=== PATIENT | female | born 1985 | race Caucasian/White ===

== ENCOUNTER 2016-11-16 08:51 | Emergency (ER) | payer OTHER ==
[2016-11-16 08:56] VITALS: TEMP 98.7
[2016-11-16] MEDS ORDERED: KETOROLAC 60 MG/2 ML VIAL IM STA (09:04)
--- NOTE | 2016-11-16 09:04 | ED ---
Extremity Problem HPI - General Chief complaint: Extremity Problem,Nontraumatic Stated complaint: pelvic and leg pain Time Seen by Provider: 11/16/16 08:57 Source: patient, RN notes reviewed, old records reviewed Mode of arrival: ambulatory Limitations: no limitations - History of Present Illness Initial comments: This is a 31-year-old female presenting to the emergency Department chief complaint of right inner thigh pain for the past day. Patient reports she woke up this morning and felt like a dull cramping pain in the right inner thigh. Patient reports that she went to work this morning and thought it would go away. Patient reports any time she bends over she feels like a sudden glynn of blood and that her "veins will explode". Denies any history of blood clots. Denies any hormone use. She is an occasional smoker. Patient states that she has no specific lower calf pain or tenderness. Patient states that she did not do any excessive movements or walking yesterday that would be abnormal. - Related Data Previous Rx's Medication Instructions Recorded Rivaroxaban [Xarelto] 15 mg PO BID 21 Days 11/16/16 Allergies Allergy/AdvReac Type Severity Reaction Status Date / Time No Known Allergies Allergy Verified 11/16/16 09:09 Review of Systems ROS Statement: Those systems with pertinent positive or pertinent negative responses have been documented in the HPI. ROS Other: All systems not noted in ROS Statement are negative. Past Medical History Past Medical History: GERD/Reflux, Thyroid Disorder History of Any Multi-Drug Resistant Organisms: None Reported Past Surgical History: Section, Cholecystectomy, Tubal Ligation Additional Past Surgical History / Comment(s): sciatica, herniated lumbar disc Past Anesthesia/Blood Transfusion Reactions: No Reported Reaction Past Psychological History: No Psychological Hx Reported Smoking Status: Current some day smoker Past Alcohol Use History: Occasional Past Drug Use History: None Reported General Exam - General Exam Comments Initial Comments: This is a 31-year-old female. Patient is morbidly obese. Limitations: no limitations General appearance: alert, in no apparent distress Head exam: Present: atraumatic, normocephalic, normal inspection Eye exam: Present: normal appearance, PERRL, EOMI. Absent: scleral icterus, conjunctival injection, periorbital swelling ENT exam: Present: normal exam, mucous membranes moist Neck exam: Present: normal inspection. Absent: tenderness, meningismus, lymphadenopathy Respiratory exam: Present: normal lung sounds bilaterally. Absent: respiratory distress, wheezes, rales, rhonchi, stridor Cardiovascular Exam: Present: regular rate, normal rhythm, normal heart sounds. Absent: systolic murmur, diastolic murmur, rubs, gallop, clicks GI/Abdominal exam: Present: soft, normal bowel sounds. Absent: distended, tenderness, guarding, rebound, rigid Right Hip exam: Present: normal inspection, full ROM Upper Leg exam: Present: normal inspection (Patient does have evidence of varicosities.), full ROM, tenderness (Tenderness over medial thigh.) Knee exam: Present: normal inspection, full ROM Lower Leg exam: Present: normal inspection, full ROM. Absent: palpable cord, Homans' sign Ankle exam: Present: normal inspection, full ROM Foot/Toe exam: Present: normal inspection, full ROM Neurovascular tendon exam: Present: no vascular compromise Gait: observed and normal Back exam: Present: normal inspection Neurological exam: Present: alert, oriented X3, CN II-XII intact Psychiatric exam: Present: normal affect, normal mood Course Vital Signs 11/16/16 11/16/16 08:51 10:30 Temperature 98.7 F 98.7 F Pulse Rate 72 89 Respiratory 20 16 Rate Blood Pressure 138/77 118/76 O2 Sat by Pulse 96 98 Oximetry Medical Decision Making - Medical Decision Making 30-year-old female chief complaint of right thigh and groin pain. Patient received a Doppler ultrasound. Evidence of a superficial thrombus within the great saphenous vein. There is a connecting portion within the deep venous system. Discussed case with Dr. Roberts. Recommended putting the patient on several toe. Patient given initial dose in emergency department. Patient will be written for the first 21 days. Discussion is follow-up with her primary care provider the next 12-24 hours to ensure the correct anticoagulation medicine for her. Discussed putting warm compresses over the areas will take anti-inflammatory medicine. Patient agrees to treatment plan will comply. - Radiology Data Radiology results: report reviewed Superficial venous terms of the great saphenous vein deep venous system, although no thrombus. With the deep venous the right lower extremity. Disposition Clinical Impression: Embolism from right greater saphenous vein Disposition: HOME SELF-CARE Condition: Good Instructions: Superficial Thrombophlebitis (ED) Additional Instructions: Patient is to follow-up with your primary care provider. Return to the emergency department if any alarming signs or symptoms occur, including severe chest pain or shortness of breath. Prescriptions: Rivaroxaban [Xarelto] 15 mg PO BID 21 Days Referrals: Yasmin Fontaine MD [Primary Care Provider] - 1-2 days Time of Disposition: 10:14
--- NOTE | 2016-11-16 09:44 | US ---
EXAMINATION TYPE: US venous doppler duplex LE RT DATE OF EXAM: 11/16/2016 9:35 AM COMPARISON: NONE CLINICAL HISTORY: Pain. Right inner thigh pain, no h/o dvt, large body habitus SIDE PERFORMED: Right TECHNIQUE: The lower extremity deep venous system is examined utilizing real time linear array sonog charlie with graded compression, doppler sonography and color-flow sonography. VESSELS IMAGED: External Iliac Vein (EIV) Common Femoral Vein Deep Femoral Vein Greater Saphenous Vein * Femoral Vein Popliteal Vein Small Saphenous Vein * Proximal Calf Veins (* superficial vessels) Right Leg: Appears negative for DVT, evidence of superficial thrombus within GSV at thigh level, GSV was not fully compressible with internal echoes and minimal flow seen, dilation of GSV noted even at junction near CFV Grayscale, color doppler, spectral doppler imaging performed of the deep veins of the lower extremiti es. There is normal flow, compressibility, vascular waveforms. IMPRESSION: Superficial venous thrombosis within the great saphenous vein and connects with the deep venous system (common femoral vein) although no thrombosis is seen within the deep venous system of the right lower extremity.
[2016-11-16] MEDS ORDERED: RIVAROXABAN 15 MG TAB PO STA (10:15)
[2016-11-16 10:30] VITALS: BP 118/76; PULSE 89; RESP 16
== END 2016-11-16 10:30 | disposition home or self-care (01) ==
LOC: EC 08:51
DX: I82.811 Embolism and thrombosis of superficial veins of right lower extremity (principal); E66.01 Morbid (severe) obesity due to excess calories; F17.200 Nicotine dependence, unspecified, uncomplicated; Z68.43 Body mass index [BMI] 50.0-59.9, adult
CPT/HCPCS: 99284; 96372; 93971; J1885

== ENCOUNTER 2016-11-17 12:21 | Emergency (ER) | payer OTHER ==
[2016-11-17 12:31] VITALS: TEMP 98.8
[2016-11-17] MEDS ORDERED: SODIUM CHLORIDE 0.9% 1,000 ML IV STA (12:50)
[2016-11-17] MEDS ORDERED: RX INFO: IV CONTRAST WAS GIVEN 1 EACH MISC MISCELLANE PRN (12:51)
--- NOTE | 2016-11-17 12:54 | ED ---
General Adult HPI - General Chief complaint: Extremity Injury, Lower Stated complaint: Sent by PCP recheck Time Seen by Provider: 11/17/16 12:36 Source: patient, RN notes reviewed, old records reviewed Mode of arrival: ambulatory Limitations: no limitations - History of Present Illness Initial comments: 31-year-old female presents emergency department for her second visit with chief complaint of increased right inner thigh pain. Patient was diagnosed yesterday with a superficial thrombus connecting into the deep venous system of her right leg. Patient reports that this morning she did feel some chest discomfort and did feel short of breath however she then related to anxiety. She states that this time she has no chest pain or shortness of breath. Patient went to her primary care provider in her primary care provider sent her here due to increased pain and swelling and that a further evaluation. Patient reports that she could not pickle sorter the prescription for his her alto, but she did receive initial dose yesterday. - Related Data Home Medications Medication Instructions Recorded Confirmed Ibuprofen [Motrin] 600 mg PO Q6HR PRN 11/17/16 11/17/16 Previous Rx's Medication Instructions Recorded Apixaban [Eliquis] 10 mg PO BID #70 tab 11/17/16 Allergies Allergy/AdvReac Type Severity Reaction Status Date / Time No Known Allergies Allergy Verified 11/17/16 13:22 Review of Systems ROS Statement: Those systems with pertinent positive or pertinent negative responses have been documented in the HPI. ROS Other: All systems not noted in ROS Statement are negative. Past Medical History Past Medical History: GERD/Reflux, Thyroid Disorder Additional Past Medical History / Comment(s): sciatica and chronic back pain History of Any Multi-Drug Resistant Organisms: None Reported Past Surgical History: Section, Cholecystectomy, Tubal Ligation Additional Past Surgical History / Comment(s): sciatica, herniated lumbar disc Past Anesthesia/Blood Transfusion Reactions: No Reported Reaction Past Psychological History: No Psychological Hx Reported Smoking Status: Current some day smoker Past Alcohol Use History: Occasional Past Drug Use History: None Reported General Exam - General Exam Comments Initial Comments: 31-year-old female. Patient does not appear to be in any acute distress. Patient does appear to be somewhat anxious, Limitations: no limitations General appearance: alert, in no apparent distress Head exam: Present: atraumatic, normocephalic, normal inspection Eye exam: Present: normal appearance, PERRL, EOMI. Absent: scleral icterus, conjunctival injection, periorbital swelling ENT exam: Present: normal exam, mucous membranes moist Neck exam: Present: normal inspection. Absent: tenderness, meningismus, lymphadenopathy Respiratory exam: Present: normal lung sounds bilaterally. Absent: respiratory distress, wheezes, rales, rhonchi, stridor Cardiovascular Exam: Present: regular rate, normal rhythm, normal heart sounds. Absent: systolic murmur, diastolic murmur, rubs, gallop, clicks GI/Abdominal exam: Present: soft, normal bowel sounds. Absent: distended, tenderness, guarding, rebound, rigid Extremities exam: Present: normal inspection, full ROM, normal capillary refill. Absent: tenderness, pedal edema, joint swelling, calf tenderness Back exam: Present: normal inspection Neurological exam: Present: alert, oriented X3, CN II-XII intact Psychiatric exam: Present: normal affect, normal mood Course Vital Signs 11/17/16 11/17/16 12:27 14:31 Temperature 98.8 F Pulse Rate 77 60 Respiratory 18 18 Rate Blood Pressure 168/81 152/70 O2 Sat by Pulse 99 99 Oximetry Medical Decision Making - Medical Decision Making 31-year-old female sent in by her PCP for further evaluation after being diagnosed with a superficial thrombus yesterday. Patient primary care wanted his CT and further blood work. EKG was reviewed and negative for any acute process. CT angiogram is negative for PE. Patient's troponins are negative. All lab work was reviewed and normal. Discussed case with Dr. Umanzor. Dr. Umanzor discussed with Dr. Matthews. We do have a free trial for Ahlquist for 1 month. Patient will be started on the initial dose of 10 mg twice a day for the first week. Patient will then 25 mg twice a day thereafter. Patient was informed of all of this. Discussed close follow-up with her primary care provider. Return parameters were discussed. - Lab Data Result diagrams: 11/17/16 13:14 11/17/16 13:14 Lab Results 11/17/16 11/17/16 11/17/16 Range/Units 13:14 13:14 13:14 WBC 8.6 (3.8-10.6) k/uL RBC 4.18 (3.80-5.40) m/uL Hgb 13.4 (11.4-16.0) gm/dL Hct 37.1 (34.0-46.0) % MCV 88.8 (80.0-100.0) fL MCH 32.1 (25.0-35.0) pg MCHC 36.2 (31.0-37.0) g/dL RDW 14.0 (11.5-15.5) % Plt Count 304 (150-450) k/uL Neutrophils % 70 % Lymphocytes % 22 % Monocytes % 3 % Eosinophils % 3 % Basophils % 1 % Neutrophils # 6.0 (1.3-7.7) k/uL Lymphocytes # 1.9 (1.0-4.8) k/uL Monocytes # 0.3 (0-1.0) k/uL Eosinophils # 0.2 (0-0.7) k/uL Basophils # 0.1 (0-0.2) k/uL Hyperchromasia Slight PT (9.0-12.0) sec INR (<1.2) APTT (22.0-30.0) sec Sodium 140 (137-145) mmol/L Potassium 4.3 (3.5-5.1) mmol/L Chloride 105 (98-107) mmol/L Carbon Dioxide 26 (22-30) mmol/L Anion Gap 9 mmol/L BUN 14 (7-17) mg/dL Creatinine 0.69 (0.52-1.04) mg/dL Est GFR (MDRD) Af Amer >60 (>60 ml/min/1.73 sqM) Est GFR (MDRD) Non-Af >60 (>60 ml/min/1.73 sqM) Glucose 90 (74-99) mg/dL Calcium 9.0 (8.4-10.2) mg/dL Total Bilirubin 0.5 (0.2-1.3) mg/dL AST 19 (14-36) U/L ALT 36 (9-52) U/L Alkaline Phosphatase 65 (38-126) U/L Total Creatine Kinase 53 (30-135) U/L CK-MB (CK-2) 0.3 (0.0-2.4) ng/mL CK-MB (CK-2) Rel Index 0.6 Troponin I <0.012 (0.000-0.034) ng/mL Total Protein 6.8 (6.3-8.2) g/dL Albumin 3.7 (3.5-5.0) g/dL Urine Color Urine Appearance (Clear) Urine pH (5.0-8.0) Ur Specific [place] (1.001-1.035) Urine Protein (Negative) Urine Glucose (UA) (Negative) Urine Ketones (Negative) Urine Blood (Negative) Urine Nitrite (Negative) Urine Bilirubin (Negative) Urine Urobilinogen (<2.0) mg/dL Ur Leukocyte Esterase (Negative) 11/17/16 11/17/16 Range/Units 13:14 14:30 WBC (3.8-10.6) k/uL RBC (3.80-5.40) m/uL Hgb (11.4-16.0) gm/dL Hct (34.0-46.0) % MCV (80.0-100.0) fL MCH (25.0-35.0) pg MCHC (31.0-37.0) g/dL RDW (11.5-15.5) % Plt Count (150-450) k/uL Neutrophils % % Lymphocytes % % Monocytes % % Eosinophils % % Basophils % % Neutrophils # (1.3-7.7) k/uL Lymphocytes # (1.0-4.8) k/uL Monocytes # (0-1.0) k/uL Eosinophils # (0-0.7) k/uL Basophils # (0-0.2) k/uL Hyperchromasia PT 10.1 (9.0-12.0) sec INR 1.0 (<1.2) APTT 24.2 (22.0-30.0) sec Sodium (137-145) mmol/L Potassium (3.5-5.1) mmol/L Chloride (98-107) mmol/L Carbon Dioxide (22-30) mmol/L Anion Gap mmol/L BUN (7-17) mg/dL Creatinine (0.52-1.04) mg/dL Est GFR (MDRD) Af Amer (>60 ml/min/1.73 sqM) Est GFR (MDRD) Non-Af (>60 ml/min/1.73 sqM) Glucose (74-99) mg/dL Calcium (8.4-10.2) mg/dL Total Bilirubin (0.2-1.3) mg/dL AST (14-36) U/L ALT (9-52) U/L Alkaline Phosphatase (38-126) U/L Total Creatine Kinase (30-135) U/L CK-MB (CK-2) (0.0-2.4) ng/mL CK-MB (CK-2) Rel Index Troponin I (0.000-0.034) ng/mL Total Protein (6.3-8.2) g/dL Albumin (3.5-5.0) g/dL Urine Color Light Yellow Urine Appearance Clear (Clear) Urine pH 5.5 (5.0-8.0) Ur Specific [place] 1.023 (1.001-1.035) Urine Protein Negative (Negative) Urine Glucose (UA) Negative (Negative) Urine Ketones Negative (Negative) Urine Blood Negative (Negative) Urine Nitrite Negative (Negative) Urine Bilirubin Negative (Negative) Urine Urobilinogen <2.0 (<2.0) mg/dL Ur Leukocyte Esterase Negative (Negative) 11/17/16 13:42 EKG shows sinus rhythm. Minimal voltage criteria for LVH. The degree of 65 beats were minute. QRS duration 90 ms. QT QTc is 412/420 ms. No evidence of ST elevation or T-wave inversion. EKG was performed at 1336. - Radiology Data Radiology results: report reviewed Suboptimal study without large saddle central pulmonary embolism. Smaller segmental and subsegmental PE cannot be excluded and the study. No suspicious acute pulmonary processes identified. Disposition Clinical Impression: Superficial thrombosis of right lower extremity Disposition: HOME SELF-CARE Condition: Good Additional Instructions: Patient advised to use the activation cardiac at the [facility] trial valid request. Patient started follow-up with her primary care provider in the next week. Return to the emergency department if any alarming signs or symptoms occur. Take Tylenol as directed. Prescriptions: Apixaban [Eliquis] 10 mg PO BID #70 tab Referrals: Yasmin Fontaine MD [Primary Care Provider] - 1-2 days Time of Disposition: 15:33
[2016-11-17] MEDS ORDERED: KETOROLAC 30 MG/ML 1 ML VIAL IVP STA (13:44)
[2016-11-17 13:46] LABS: ALT 36 U/L (9-52); AST 19 U/L (14-36); Alkaline Phosphatase 65 U/L (38-126); Anion Gap 9 mmol/L; Blood Urea Nitrogen 14 mg/dL (7-17); Carbon Dioxide 26 mmol/L (22-30); Chloride 105 mmol/L (98-107); Glucose 90 mg/dL (74-99); Non-African American GFR(MDRD) >60 (>60 ml/min/1.73 sqM); Potassium 4.3 mmol/L (3.5-5.1); Sodium 140 mmol/L (137-145); Total Bilirubin 0.5 mg/dL (0.2-1.3); Total Protein 6.8 g/dL (6.3-8.2)
[2016-11-17 13:48] LABS: Basophils # (A) 0.1 k/uL (0-0.2); Basophils % (A) 1 %; CH 32.9; CHCM 37.3; Eosinophils # (A) 0.2 k/uL (0-0.7); Eosinophils % (A) 3 %; HCT 37.1 % (34.0-46.0); HDW 3.15; HGB 13.4 gm/dL (11.4-16.0); Hyperchromasia Slight; Luc % (Auto) 1; Lymphocytes # (A) 1.9 k/uL (1.0-4.8); Lymphocytes % (A) 22 %; MCH 32.1 pg (25.0-35.0); MCHC 36.2 g/dL (31.0-37.0); MCV 88.8 fL (80.0-100.0); Mean Platelet Volume 6.8; Monocytes # (A) 0.3 k/uL (0-1.0); Monocytes % (A) 3 %; Neutrophils % (A) 70 %; RBC 4.18 m/uL (3.80-5.40); WBC 8.6 k/uL (3.8-10.6); WBC (Perox) 8.57
[2016-11-17 13:51] LABS: Partial Thromboplastin Time 24.2 sec (22.0-30.0); Prothrombin Time 10.1 sec (9.0-12.0)
[2016-11-17 13:56] LABS: Creatine Kinase 53 U/L (30-135)
[2016-11-17 14:09] LABS: Creatine Kinase MB 0.3 ng/mL (0.0-2.4); Troponin I <0.012 ng/mL (0.000-0.034)
--- NOTE | 2016-11-17 14:35 | CT ---
EXAMINATION TYPE: CT chest angio for PE DATE OF EXAM: 11/17/2016 COMPARISON: NONE HISTORY: Chest pain rule out pulmonary embolism. CT DLP: 1190.2 mGycm. Automated Exposure Control for Dose Reduction was Utilized. CONTRAST: CTA scan of the thorax is performed with IV Contrast, patient injected with 100 mL of Omnipaque 350, pulmonary embolism protocol. MIP Images are created on CT scanner and reviewed. FINDINGS: LUNGS: Low lung volumes are slightly elevated left hemidiaphragm is present. The lungs are grossly cl ear, there is no concerning parenchymal mass or nodule identified. There is no pleural effusion or pneumothorax seen. The tracheobronchial tree is patent. MEDIASTINUM: Exam is suboptimal due to patient's large body habitus. In addition there is patient non cooperation causing poor bolus timing with most prominent contrast in the left subclavian vein and SV C. There is poor heterogeneous bolus without large central saddle pulmonary embolism. Smaller segment al and subsegmental PE cannot be excluded on this exam. There are no greater than 1 cm hilar or media stinal lymph nodes. No cardiomegaly or pericardial effusion is seen. OTHER: Liver is diffusely low dense consistent with fatty infiltration. Cholecystectomy clips are par tially imaged.. IMPRESSION: Suboptimal study without large saddle central pulmonary embolism. Smaller segmental and s ubsegmental PE cannot be excluded on this study. No suspicious acute pulmonary process is noted.
[2016-11-17 14:47] LABS: Appearance,Urine Clear (Clear); Bilirubin,Urine Negative (Negative); Glucose,Urine (UA) Negative (Negative); Ketones,Urine Negative (Negative); Leukocyte Esterase,Urine Negative (Negative); Nitrite,Urine Negative (Negative); PH, Urine 5.5 (5.0-8.0); Protein,Urine Negative (Negative); Specific Gravity,Urine 1.023 (1.001-1.035); UA Billing (MACRO vs. MICRO) CHEM; Urobilinogen,Urine <2.0 mg/dL (<2.0)
[2016-11-17] MEDS ORDERED: APIXABAN 5 MG TAB PO STA (15:26)
[2016-11-17 15:57] VITALS: BP 153/87; PULSE 66; RESP 16
== END 2016-11-17 15:58 | disposition home or self-care (01) ==
LOC: EC 12:21
DX: I82.4Z1 Acute embolism and thrombosis of unspecified deep veins of right distal lower extremity (principal); R07.89 Other chest pain; R06.02 Shortness of breath; F17.200 Nicotine dependence, unspecified, uncomplicated
CPT/HCPCS: 36415; 93005; 80053; 82550; 82553; 84484; 85025; 85610; 85730; 81003; 71275; 99284; 96374; 96361 ×3; Q9967; J1885

== ENCOUNTER 2017-05-23 13:17 | Emergency (ER) | payer OTHER ==
[2017-05-23 13:32] VITALS: RESP 18
--- NOTE | 2017-05-23 13:44 | ED ---
Lower Extremity Injury HPI - General Chief Complaint: Extremity Injury, Lower Stated Complaint: fall/toe pain Time Seen by Provider: 05/23/17 13:29 Source: patient, RN notes reviewed Mode of arrival: ambulatory Limitations: no limitations - History of Present Illness Initial Comments: This is a 32-year-old female who presents to the emergency department with chief complaint of left toe pain. Patient states that approximately 30-45 minutes prior to arrival she missed the last step while coming down a set of stairs. She states that she fell forward and when she got up noticed that she had pain in her third left toe. Patient states that she sat at home for a while and the pain became worse and she noticed swelling. She describes the pain as a stinging sensation and states that it is difficult to walk due to the pain. Denies any other injuries or trauma. Denies fever, chills, chest pain, shortness of breath, abdominal pain, nausea or vomiting, numbness or tingling, headache or vision changes. - Related Data Home Medications Medication Instructions Recorded Confirmed Ibuprofen [Motrin Ib] 800 mg PO TID PRN 05/23/17 05/23/17 Allergies Allergy/AdvReac Type Severity Reaction Status Date / Time No Known Allergies Allergy Verified 05/23/17 13:39 Review of Systems ROS Statement: Those systems with pertinent positive or pertinent negative responses have been documented in the HPI. ROS Other: All systems not noted in ROS Statement are negative. Past Medical History Past Medical History: Deep Vein Thrombosis (DVT), GERD/Reflux, Thyroid Disorder Additional Past Medical History / Comment(s): sciatica and chronic back pain History of Any Multi-Drug Resistant Organisms: None Reported Past Surgical History: Section, Cholecystectomy, Tubal Ligation Additional Past Surgical History / Comment(s): sciatica, herniated lumbar disc Past Anesthesia/Blood Transfusion Reactions: No Reported Reaction Past Psychological History: Depression Smoking Status: Current some day smoker Past Alcohol Use History: Occasional Past Drug Use History: Marijuana General Exam - General Exam Comments Initial Comments: General: Awake and alert, well-developed; in no apparent distress. HEENT: Head atraumatic, normocephalic. Pupils are equal, round and reactive to light. Extraocular movements intact. Oropharynx moist without erythema or exudate. Neck: Supple. Normal ROM. Cardiovascular: Regular rate and rhythm. No murmurs, rubs or gallops. Chest symmetrical. Respiratory: Lungs clear to auscultation bilaterally. No wheezes, rales or rhonchi. Normal respiratory effort with no use of accessory muscles. Musculoskeletal: Normal range of motion of the left foot and digits. There is tenderness on palpation of third digit with mild soft tissue swelling noted. Sensation is intact. Pedal pulses are 2+ equal and palpable bilaterally. Skin: [place], warm and dry without rashes or lesions. Neurological: Alert and oriented x3. CN II-XII grossly intact. Speech is fluent and answers are appropriate. No focal neuro deficits. Psychiatric: Normal mood and affect. No overt signs of depression or anxiety noted. Limitations: no limitations Course Vital Signs 05/23/17 13:28 Temperature 97.4 F L Pulse Rate 91 Respiratory 18 Rate Blood Pressure 158/84 O2 Sat by Pulse 97 Oximetry Medical Decision Making - Medical Decision Making This is a 32-year-old female who presents to the emergency department with chief complaint of left toe injury. There is soft tissue swelling and tenderness on palpation of the left third digit. X-ray revealed a comminuted fracture of the proximal phalanx of the third digit on the left foot. Toes were preston taped and a postop shoe was provided. Patient tolerated well and is neurovascularly intact. She is in no acute distress. Recommend following up with her primary care provider. Recommended ice, elevation and continue preston taping. Patient is in agreement with plan and voices understanding. All questions were answered. Patient provided with follow-up to orthopedics if no improvement. - Radiology Data Radiology results: report reviewed X-ray left foot findings: There is a comminuted oblique fracture mid diaphysis left third digit proximal phalanx. There is extension into the articular surface. No additional fractures are evident. Impression: Comminuted fracture proximal phalanx third digit with intra-articular extension Disposition Clinical Impression: Fracture of toe Disposition: HOME SELF-CARE Condition: Good Instructions: Toe Fracture (ED) Additional Instructions: Please ice, elevate and use preston tape for added support. Please follow-up with orthopedics if there is no improvement in pain or walking capabilities. Please follow up with primary care provider within 1-2 days. Return to emergency department if symptoms should worsen or any concerns arise. Referrals: Yasmin Fontaine MD [Primary Care Provider] - 1-2 days Francois Burnett MD [STAFF PHYSICIAN] - 1-2 days Time of Disposition: 14:33
--- NOTE | 2017-05-23 14:17 | XR ---
EXAMINATION TYPE: XR foot complete LT DATE OF EXAM: 05/23/2017 COMPARISON: Left foot HISTORY: Third digit pain TECHNIQUE: Three-view left foot FINDINGS: There is a comminuted oblique fracture mid diaphysis left third digit proximal phalanx. The re is extension into the articular surface. No additional fractures are evident. Plantar and Achilles tendon calcaneal heel spurs are present No additional fractures are evident. Soft tissue swelling is over the fracture site. IMPRESSION: 1. Comminuted fracture proximal phalanx third digit with intra-articular extension.
[2017-05-23 14:40] VITALS: BP 148/80; PULSE 82; TEMP 97.6
== END 2017-05-23 14:35 | disposition home or self-care (01) ==
LOC: EC 13:17
DX: S92.512A Displaced fracture of proximal phalanx of left lesser toe(s), initial encounter for closed fracture (principal); F17.200 Nicotine dependence, unspecified, uncomplicated; W18.39XA Other fall on same level, initial encounter; Y93.89 Activity, other specified
CPT/HCPCS: 99283

== ENCOUNTER 2017-10-03 19:59 | Emergency (ER) | payer OTHER ==
[2017-10-03 20:12] VITALS: TEMP 98.8
--- NOTE | 2017-10-03 21:37 | XR ---
EXAMINATION TYPE: XR chest 2V DATE OF EXAM: 10/03/2017 COMPARISON: April 26, 2012 HISTORY: Chest pain TECHNIQUE: Frontal and lateral views of the chest are obtained. FINDINGS: Heart and mediastinum are normal. Lungs are clear. Diaphragm is normal. Bony thorax appear s normal. IMPRESSION: Normal chest. No change.
[2017-10-03] MEDS ORDERED: IBUPROFEN 400 MG TAB PO STA (22:01)
--- NOTE | 2017-10-03 22:01 | ED ---
SOB HPI - General Chief Complaint: Shortness of Breath Stated Complaint: diff breathing, cough Time Seen by Provider: 10/03/17 21:03 Source: EMS Mode of arrival: EMS Limitations: no limitations - History of Present Illness Initial Comments: This patient is a 32-year-old woman who presents to be evaluated for congestion and cough and dyspnea. 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 She states that she had about a day of nasal congestion and a mild cough. Today the symptoms were a bit worse, and she started having yellow or green sputum occasionally with the cough. This evening she started feeling some shortness of breath coming on so she was seen at [facility], where they evaluated her. She also was given nebulized breathing treatment and Solu-Medrol. As she was so short of breath they transferred her here by ambulance. Patient states that she does feel just a bit better but not back at her baseline. MD Complaint: shortness of breath, cough Onset/Timin -: days(s) Consistency: constant Improves With: bronchodilators Worsens With: nothing Context: recent URI - Related Data Home Oxygen Therapy: No Home Medications Medication Instructions Recorded Confirmed Ibuprofen [Motrin Ib] 800 mg PO TID PRN 05/23/17 10/03/17 Previous Rx's Medication Instructions Recorded Albuterol Inhaler [Ventolin Hfa 1 - 2 puff INHALATION Q6HR PRN #1 10/03/17 Inhaler] inhaler predniSONE 60 mg PO DAILY #30 tab 10/03/17 Allergies Allergy/AdvReac Type Severity Reaction Status Date / Time No Known Allergies Allergy Verified 10/03/17 20:22 Review of Systems ROS Statement: Those systems with pertinent positive or pertinent negative responses have been documented in the HPI. ROS Other: All systems not noted in ROS Statement are negative. Constitutional: Denies: fever, chills ENT: Reports: congestion Respiratory: Reports: cough, dyspnea. Denies: wheezes, hemoptysis Cardiovascular: Reports: dyspnea on exertion. Denies: chest pain, palpitations , orthopnea, edema, syncope Gastrointestinal: Denies: abdominal pain, vomiting, diarrhea Genitourinary: Denies: dysuria, hematuria Musculoskeletal: Denies: back pain Skin: Denies: rash Neurological: Denies: headache, weakness, numbness Past Medical History Past Medical History: Deep Vein Thrombosis (DVT), GERD/Reflux, Thyroid Disorder Additional Past Medical History / Comment(s): sciatica and chronic back pain, History of Any Multi-Drug Resistant Organisms: None Reported Past Surgical History: Section, Cholecystectomy, Tubal Ligation Additional Past Surgical History / Comment(s): sciatica, herniated lumbar disc, Past Anesthesia/Blood Transfusion Reactions: No Reported Reaction Past Psychological History: Anxiety, Depression Smoking Status: Former smoker Past Alcohol Use History: Occasional Past Drug Use History: Marijuana General Exam Limitations: no limitations General appearance: alert, in no apparent distress, obese Head exam: Present: atraumatic, normocephalic Eye exam: Present: normal appearance ENT exam: Present: normal oropharynx, mucous membranes moist Neck exam: Present: normal inspection Respiratory exam: Present: normal lung sounds bilaterally. Absent: respiratory distress, wheezes, rales, rhonchi, stridor, accessory muscle use, decreased breath sounds, prolonged expiratory Cardiovascular Exam: Present: regular rate, normal rhythm, normal heart sounds. Absent: systolic murmur, diastolic murmur, rubs, gallop GI/Abdominal exam: Present: soft. Absent: distended, tenderness, guarding, rebound Extremities exam: Present: normal inspection, normal capillary refill. Absent: pedal edema, calf tenderness Back exam: Present: normal inspection. Absent: CVA tenderness (R), CVA tenderness (L) Skin exam: Present: warm, dry, intact, normal color. Absent: rash Course Vital Signs 10/03/17 10/03/17 10/03/17 20:02 21:58 22:53 Temperature 98.8 F Pulse Rate 81 73 85 Respiratory 24 20 18 Rate Blood Pressure 164/77 138/80 133/71 O2 Sat by Pulse 99 98 98 Oximetry 10/03/17 23:22 Temperature Pulse Rate 83 Respiratory 18 Rate Blood Pressure 127/67 O2 Sat by Pulse 95 Oximetry Medical Decision Making - Lab Data Result diagrams: 10/03/17 21:55 10/03/17 21:55 Lab Results 10/03/17 10/03/17 10/03/17 Range/Units 21:55 21:55 21:55 WBC 11.6 H (3.8-10.6) k/uL RBC 4.26 (3.80-5.40) m/uL Hgb 13.1 (11.4-16.0) gm/dL Hct 37.3 (34.0-46.0) % MCV 87.6 (80.0-100.0) fL MCH 30.7 (25.0-35.0) pg MCHC 35.0 (31.0-37.0) g/dL RDW 13.8 (11.5-15.5) % Plt Count 273 (150-450) k/uL Neutrophils % 89 % Lymphocytes % 8 % Monocytes % 1 % Eosinophils % 1 % Basophils % 0 % Neutrophils # 10.3 H (1.3-7.7) k/uL Lymphocytes # 0.9 L (1.0-4.8) k/uL Monocytes # 0.2 (0-1.0) k/uL Eosinophils # 0.1 (0-0.7) k/uL Basophils # 0.0 (0-0.2) k/uL D-Dimer 0.37 (<0.60) mg/L FEU Sodium 138 (137-145) mmol/L Potassium 4.5 (3.5-5.1) mmol/L Chloride 103 (98-107) mmol/L Carbon Dioxide 23 (22-30) mmol/L Anion Gap 12 mmol/L BUN 14 (7-17) mg/dL Creatinine 0.58 (0.52-1.04) mg/dL Est GFR (CKD-EPI)AfAm >90 (>60 ml/min/1.73 sqM) Est GFR (CKD-EPI)NonAf >90 (>60 ml/min/1.73 sqM) Glucose 111 H (74-99) mg/dL Calcium 8.7 (8.4-10.2) mg/dL Total Bilirubin 0.7 (0.2-1.3) mg/dL AST 31 (14-36) U/L ALT 42 (9-52) U/L Alkaline Phosphatase 71 (38-126) U/L Troponin I (0.000-0.034) ng/mL Total Protein 7.1 (6.3-8.2) g/dL Albumin 4.0 (3.5-5.0) g/dL 10/03/17 Range/Units 21:55 WBC (3.8-10.6) k/uL RBC (3.80-5.40) m/uL Hgb (11.4-16.0) gm/dL Hct (34.0-46.0) % MCV (80.0-100.0) fL MCH (25.0-35.0) pg MCHC (31.0-37.0) g/dL RDW (11.5-15.5) % Plt Count (150-450) k/uL Neutrophils % % Lymphocytes % % Monocytes % % Eosinophils % % Basophils % % Neutrophils # (1.3-7.7) k/uL Lymphocytes # (1.0-4.8) k/uL Monocytes # (0-1.0) k/uL Eosinophils # (0-0.7) k/uL Basophils # (0-0.2) k/uL D-Dimer (<0.60) mg/L FEU Sodium (137-145) mmol/L Potassium (3.5-5.1) mmol/L Chloride (98-107) mmol/L Carbon Dioxide (22-30) mmol/L Anion Gap mmol/L BUN (7-17) mg/dL Creatinine (0.52-1.04) mg/dL Est GFR (CKD-EPI)AfAm (>60 ml/min/1.73 sqM) Est GFR (CKD-EPI)NonAf (>60 ml/min/1.73 sqM) Glucose (74-99) mg/dL Calcium (8.4-10.2) mg/dL Total Bilirubin (0.2-1.3) mg/dL AST (14-36) U/L ALT (9-52) U/L Alkaline Phosphatase (38-126) U/L Troponin I <0.012 (0.000-0.034) ng/mL Total Protein (6.3-8.2) g/dL Albumin (3.5-5.0) g/dL - EKG Data -: EKG Interpreted by Sd EKG shows normal: sinus rhythm, axis (Normal), intervals (Normal), QRS complexes (LVH), ST-T waves (Normal) Rate: normal (Rate 82 bpm) Interpretation: LVH (By voltage criteria) Disposition Clinical Impression: Acute bronchitis Disposition: HOME SELF-CARE Condition: Good Instructions: Acute Bronchitis (ED) Prescriptions: Albuterol Inhaler [Ventolin Hfa Inhaler] 1 - 2 puff INHALATION Q6HR PRN #1 inhaler PRN Reason: Wheezing predniSONE 60 mg PO DAILY #30 tab Is patient prescribed a controlled substance at d/c from ED?: No Referrals: Yasmin Fontaine MD [Primary Care Provider] - 1-2 days
[2017-10-03 22:07] LABS: Basophils % (A) 0 %; Eosinophils # (A) 0.1 k/uL (0-0.7); Eosinophils % (A) 1 %; HCT 37.3 % (34.0-46.0); HGB 13.1 gm/dL (11.4-16.0); Lymphocytes # (A) 0.9 k/uL (1.0-4.8); Lymphocytes % (A) 8 %; MCH 30.7 pg (25.0-35.0); MCV 87.6 fL (80.0-100.0); Mean Platelet Volume 7.3; Monocytes # (A) 0.2 k/uL (0-1.0); Monocytes % (A) 1 %; Neutrophils # (A) 10.3 k/uL (1.3-7.7); Neutrophils % (A) 89 %; Platelet Count 273 k/uL (150-450); RBC 4.26 m/uL (3.80-5.40); RDW 13.8 % (11.5-15.5); WBC 11.6 k/uL (3.8-10.6)
[2017-10-03 22:15] LABS: ALT 42 U/L (9-52); AST 31 U/L (14-36); Alkaline Phosphatase 71 U/L (38-126); Anion Gap 12 mmol/L; Blood Urea Nitrogen 14 mg/dL (7-17); Calcium 8.7 mg/dL (8.4-10.2); Carbon Dioxide 23 mmol/L (22-30); Chloride 103 mmol/L (98-107); Glucose 111 mg/dL (74-99); Potassium 4.5 mmol/L (3.5-5.1); Sodium 138 mmol/L (137-145); Total Bilirubin 0.7 mg/dL (0.2-1.3); Total Protein 7.1 g/dL (6.3-8.2)
[2017-10-03 22:54] VITALS: RESP 18
[2017-10-03 23:23] VITALS: BP 127/67; PULSE 83
== END 2017-10-03 23:48 | disposition home or self-care (01) ==
LOC: EC 19:59
DX: J20.9 Acute bronchitis, unspecified (principal); R94.31 Abnormal electrocardiogram [ECG] [EKG]; Z86.718 Personal history of other venous thrombosis and embolism; Z87.891 Personal history of nicotine dependence
CPT/HCPCS: 36415; 71046; 80053; 84484; 85025; 85379; 93005; 99285

== ENCOUNTER 2018-05-16 19:32 | Emergency (ER) | payer OTHER ==
[2018-05-16 20:56] VITALS: RESP 18
--- NOTE | 2018-05-16 23:51 | US ---
EXAM: US Duplex Bilateral Lower Extremity Veins CLINICAL HISTORY: Pain TECHNIQUE: Real-time duplex ultrasound scan of the bilateral lower extremity veins integrating B-mode two-dimensional vascular structure, Doppler spectral analysis, color flow Doppler imaging and compression. COMPARISON: No relevant prior studies available. FINDINGS: Right deep veins: Unremarkable. No DVT in the right common femoral, femoral, proximal deep femoral or popliteal veins. The veins demonstrate normal color flow, are normally compressible, with normal phasic flow and/or augmentation response. Right superficial veins: Unremarkable. No thrombus in the visualized right great saphenous vein. Left deep veins: Unremarkable. No DVT in the left common femoral, femoral, proximal deep femoral or popliteal veins. The veins demonstrate normal color flow, are normally compressible, with normal phasic flow and/or augmentation response. Left superficial veins: Unremarkable. No thrombus in the visualized left great saphenous vein. Soft tissues: No acute findings. No popliteal cyst. IMPRESSION: Normal bilateral lower extremity duplex venous ultrasound.
--- NOTE | 2018-05-16 23:59 | ED ---
General Adult HPI - General Chief complaint: Extremity Problem,Nontraumatic Stated complaint: Leg pain, possible blood clot Time Seen by Provider: 05/16/18 21:34 Source: patient, RN notes reviewed, old records reviewed Mode of arrival: ambulatory Limitations: no limitations - History of Present Illness Initial comments: 33-year-old female patient past medical history of DVT and superficial venous thromboembolism presents to ED with mild amount of pain in anterior R thigh. Patient reports this ongoing for approximately 2 days. Patient wants to be sure that this is not a DVT. Patient is not currently anticoagulated. Patient denies any chest pain or shortness breath. Patient denies any abdominal pain. Patient denies other complaints. Systemic: Pt denies fatigue, fever/chills, rash. Pt denies weakness, night sweats, weight loss. Neuro: Pt denies headache, visual disturbances, syncope or pre-syncope. HEENT: Pt denies ocular discharge or irritation, otalgia, rhinorrhea, pharyngitis or notable lymphadenopathy. Cardiopulmonary: Pt denies chest pain, SOB, heart palpitations, dyspnea on exertion. Abdominal/GI: Pt denies abdominal pain, n/v/d. : Pt denies dysuria, burning w/ urination, frequency/urgency. Denies new onset urinary or bowel incontinence. MSK: Pt denies loss of strength or function in extremities. Neuro: Pt denies new onset weakness, paresthesias. - Related Data Home Medications Medication Instructions Recorded Confirmed No Known Home Medications 05/16/18 05/16/18 Allergies Allergy/AdvReac Type Severity Reaction Status Date / Time No Known Allergies Allergy Verified 05/16/18 20:56 Review of Systems ROS Statement: Those systems with pertinent positive or pertinent negative responses have been documented in the HPI. ROS Other: All systems not noted in ROS Statement are negative. Past Medical History Past Medical History: Deep Vein Thrombosis (DVT), GERD/Reflux, Thyroid Disorder Additional Past Medical History / Comment(s): sciatica and chronic back pain, History of Any Multi-Drug Resistant Organisms: None Reported Past Surgical History: Section, Cholecystectomy, Tubal Ligation Additional Past Surgical History / Comment(s): sciatica, herniated lumbar disc, Past Anesthesia/Blood Transfusion Reactions: No Reported Reaction Past Psychological History: Anxiety, Depression Smoking Status: Current some day smoker Past Alcohol Use History: Occasional Past Drug Use History: Marijuana General Exam - General Exam Comments Initial Comments: Constitutional: NAD, AOX3, Pt has pleasant affect. HEENT: NC/AT, trachea midline, neck supple, no lymphadenopathy. Posterior pharynx non erythematous, without exudates. External ears appear normal, without discharge. Mucous membranes moist. Eyes PERRLA, EOM intact. There is no scleral icterus. No pallor noted. Cardiopulmonary: RRR, no murmurs, rubs or gallops, no JVD noted. Lungs CTAB in anterior and posterior collins. No peripheral edema. Abdominal exam: Abdomen soft and non-distended. Abdomen non-tender to palpation in all 4 quadrants. Bowel sounds active in LLQ. No hepatosplenomegaly. No ecchymosis Neuro: CN II-XII grossly intact. No nuchal rigidity. MSK: Anterior R thigh nontender to palpation. No erytheam or edema. Posterior R calf mildly tender to palpation. No erythema or edema. Distal pulses intact and equal. No other areas of tenderness.Posterior tibialis and radial pulse +2 bilaterally. Sensation intact in upper and lower extremities. Full active ROM in upper and lower extremities, 5/5 stregnth. Limitations: no limitations Course Vital Signs 05/16/18 05/17/18 20:50 00:04 Temperature 98.2 F 98.1 F Pulse Rate 75 77 Respiratory 18 18 Rate Blood Pressure 160/95 156/86 O2 Sat by Pulse 98 96 Oximetry Medical Decision Making - Medical Decision Making 33-year-old female patient past medical history of DVT and superficial venous thromboembolism presents to ED with mild amount of pain in anterior R thigh. Patient reports this ongoing for approximately 2 days. Patient wants to be sure that this is not a DVT. Patient is not currently anticoagulated. Patient denies any chest pain or shortness breath. Patient denies any abdominal pain. Patient denies other complaints. Pt VSS, afebrile. Physical exam displayed: Anterior R thigh nontender to palpation. No erytheam or edema. Posterior R calf mildly tender to palpation. No erythema or edema. Distal pulses intact and equal. No other areas of tenderness. Bilateral lower extremity venous Doppler do not display any findings of a DVT. These findings explained to patient at length. Patient verbalized understanding. Patient to follow up with primary care provider in 1-2 days. Patient to return to ED if new signs symptoms develop or condition worsens in any way. Case discussed with Dr. Washington. Disposition Clinical Impression: Myalgia Disposition: HOME SELF-CARE Condition: Stable Instructions (If sedation given, give patient instructions): Musculoskeletal Pain (ED) Additional Instructions: Patient to adhere to previously discussed treatment plan and will take medication(s) as directed. Patient to follow up with PCP in 1-2 days. Patient to return to ED if symptoms do not improve. Is patient prescribed a controlled substance at d/c from ED?: No Referrals: Lana Redmond MD [Primary Care Provider] - 1-2 days
[2018-05-17 00:05] VITALS: BP 156/86; PULSE 77; TEMP 98.1
== END 2018-05-17 00:04 | disposition home or self-care (01) ==
LOC: EC 19:32
DX: M79.18 Myalgia, other site (principal); M79.651 Pain in right thigh; F17.200 Nicotine dependence, unspecified, uncomplicated; Z86.718 Personal history of other venous thrombosis and embolism
CPT/HCPCS: 93970; 99284

== ENCOUNTER 2018-07-03 23:08 | Emergency (ER) | payer OTHER ==
[2018-07-03 23:16] VITALS: RESP 18
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
[2018-07-04] MEDS ORDERED: IBUPROFEN 400 MG TAB PO STA (00:13)
[2018-07-04] MEDS ORDERED: HYDROcodone/APAP 5-325MG 1 EACH TAB PO STA (00:14)
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
[2018-07-04 01:04] VITALS: BP 143/83; PULSE 88; TEMP 97.7
== END 2018-07-04 01:04 | disposition home or self-care (01) ==
LOC: EC 23:08
DX: S52.502A Unspecified fracture of the lower end of left radius, initial encounter for closed fracture (principal); S70.211A Abrasion, right hip, initial encounter; S80.811A Abrasion, right lower leg, initial encounter; S20.312A Abrasion of left front wall of thorax, initial encounter; F17.200 Nicotine dependence, unspecified, uncomplicated; Z86.718 Personal history of other venous thrombosis and embolism; Z90.49 Acquired absence of other specified parts of digestive tract; Z98.51 Tubal ligation status; Z98.890 Other specified postprocedural states; V49.49XA Driver injured in collision with other motor vehicles in traffic accident, initial encounter; Y92.410 Unspecified street and highway as the place of occurrence of the external cause
CPT/HCPCS: 99284

== ENCOUNTER → 2018-07-09 | Outpatient (CLI) | payer OTHER ==
--- NOTE | 2018-07-09 13:15 | XR ---
EXAMINATION TYPE: XR chest 2V DATE OF EXAM: 07/09/2018 COMPARISON: 01/24/2018 HISTORY: Chest pain TECHNIQUE: Frontal and lateral views of the chest are obtained. FINDINGS: There is no focal air space opacity. No evidence for pneumothorax. No pleural effusion. The cardiac silhouette size is within normal limits. The osseous structures are grossly intact. IMPRESSION: 1. No acute cardiopulmonary process.
--- NOTE | 2018-07-09 13:22 | XR ---
EXAMINATION TYPE: XR foot limited RT DATE OF EXAM: 07/09/2018 CLINICAL HISTORY: pain TECHNIQUE: Frontal, lateral images of the right foot are obtained. COMPARISON: None. FINDINGS: There is no acute fracture/dislocation evident. The joint spaces appear within normal ayers its. The overlying soft tissue appears unremarkable. IMPRESSION: There is no acute fracture or dislocation. ICD 10 NO FRACTURE, INITIAL EVALUATION
--- NOTE | 2018-07-09 13:23 | XR ---
EXAMINATION TYPE: XR shoulder limited RT DATE OF EXAM: 07/09/2018 CLINICAL HISTORY: pain TECHNIQUE: 2 views of the right shoulder are obtained. COMPARISON: None FINDINGS: There is no acute fracture/dislocation evident. The acromioclavicular and glenohumeral arturo int spaces appear within normal limits. The visualized ribs are intact and unremarkable. IMPRESSION: 1. There is no acute fracture or dislocation. ICD 10 NO FRACTURE, INITIAL EVALUATION
--- NOTE | 2018-07-09 13:27 | XR ---
EXAMINATION TYPE: XR ankle limited RT DATE OF EXAM: 07/09/2018 COMPARISON: NONE HISTORY: Pain TECHNIQUE: Frontal, lateral images of the right ankle are obtained. COMPARISON: None. FINDINGS: There is no acute fracture/dislocation evident. The joint spaces appear within normal ayers its. Lateral soft tissue swelling noted. IMPRESSION: There is no acute fracture or dislocation seen.
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
== END | disposition home or self-care (01) ==
LOC: RADXRMAIN 11:58
PROVIDERS: ATTEND Internal Medicine
DX: R52 Pain, unspecified (principal)
CPT/HCPCS: 71046; 72040

== ENCOUNTER 2018-07-11 14:22 | Emergency (ER) | payer OTHER ==
[2018-07-11 14:35] VITALS: RESP 18
[2018-07-11] MEDS ORDERED: SODIUM CHLORIDE 0.9% 1,000 ML IV STA (15:12)
[2018-07-11 15:44] LABS: Appearance,Urine Clear (Clear); Bacteria,Urine Rare /hpf; Bilirubin,Urine Negative (Negative); Blood,Urine Negative (Negative); Color,Urine Yellow; Glucose,Urine (UA) Negative (Negative); Ketones,Urine Negative (Negative); Leukocyte Esterase,Urine Small (Negative); Mucus,Urine Occasional /hpf; Nitrite,Urine Negative (Negative); PH, Urine 5.5 (5.0-8.0); Protein,Urine Trace (Negative); RBC,Urine 2 /hpf (0-5); Specific Gravity,Urine 1.034 (1.001-1.035); Squamous Epithelial Cell,Urine 4 /hpf (0-4); Urobilinogen,Urine <2.0 mg/dL (<2.0)
[2018-07-11 16:19] LABS: Basophils # (A) 0.1 k/uL (0-0.2); Basophils % (A) 1 %; Eosinophils # (A) 0.3 k/uL (0-0.7); Eosinophils % (A) 4 %; Lymphocytes # (A) 2.2 k/uL (1.0-4.8); Lymphocytes % (A) 26 %; MCHC 35.1 g/dL (31.0-37.0); MCV 88.2 fL (80.0-100.0); Mean Platelet Volume 6.6; Monocytes # (A) 0.2 k/uL (0-1.0); Monocytes % (A) 3 %; Neutrophils # (A) 5.4 k/uL (1.3-7.7); Neutrophils % (A) 64 %; Platelet Count 280 k/uL (150-450); RBC 3.86 m/uL (3.80-5.40); RDW 14.1 % (11.5-15.5); WBC 8.4 k/uL (3.8-10.6)
[2018-07-11 16:27] LABS: ALT 40 U/L (9-52); AST 27 U/L (14-36); Albumin 3.4 g/dL (3.5-5.0); Alkaline Phosphatase 67 U/L (38-126); Anion Gap 5 mmol/L; Blood Urea Nitrogen 18 mg/dL (7-17); Carbon Dioxide 29 mmol/L (22-30); Chloride 104 mmol/L (98-107); Glucose 101 mg/dL (74-99); Potassium 4.1 mmol/L (3.5-5.1); Sodium 138 mmol/L (137-145); Total Bilirubin 0.5 mg/dL (0.2-1.3); Total Protein 6.3 g/dL (6.3-8.2)
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
[2018-07-11 18:42] VITALS: BP 127/71; PULSE 71; TEMP 98
== END 2018-07-11 18:39 | disposition home or self-care (01) ==
LOC: EC 14:22
DX: S30.1XXA Contusion of abdominal wall, initial encounter (principal); R60.0 Localized edema; F17.200 Nicotine dependence, unspecified, uncomplicated; Z86.718 Personal history of other venous thrombosis and embolism; Z87.81 Personal history of (healed) traumatic fracture; Z90.49 Acquired absence of other specified parts of digestive tract; Z98.51 Tubal ligation status; V49.59XA Passenger injured in collision with other motor vehicles in traffic accident, initial encounter; Y92.410 Unspecified street and highway as the place of occurrence of the external cause
CPT/HCPCS: 36415; 80053; 85025; 81001; 81025; 73590; 71260; 74177; 99284; 96360; 96361; Q9967

== ENCOUNTER → 2018-09-05 | Outpatient (CLI) | payer OTHER ==
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
== END | disposition home or self-care (01) ==
LOC: LABWHC1 08:13
PROVIDERS: ATTEND Orthopaedic Surgery
DX: S52.515D Nondisplaced fracture of left radial styloid process, subsequent encounter for closed fracture with routine healing (principal); S63.636D Sprain of interphalangeal joint of right little finger, subsequent encounter; M51.36 Other intervertebral disc degeneration, lumbar region; M47.817 Spondylosis without myelopathy or radiculopathy, lumbosacral region; M46.96 Unspecified inflammatory spondylopathy, lumbar region; M54.12 Radiculopathy, cervical region; M25.532 Pain in left wrist; M79.644 Pain in right finger(s); M47.814 Spondylosis without myelopathy or radiculopathy, thoracic region
CPT/HCPCS: 36415; 72072; 72114; 82306

== ENCOUNTER → 2020-11-20 | Outpatient (CLI) | payer OTHER ==
--- NOTE | 2020-11-22 09:10 | XR ---
EXAMINATION TYPE: XR chest 2V DATE OF EXAM: 11/20/2020 COMPARISON: 07/09/2018 INDICATION: Cough and congestion TECHNIQUE: Frontal and lateral views of the chest are obtained. FINDINGS: The heart size is normal. The pulmonary vasculature is normal. The lungs are clear. IMPRESSION: 1. No acute pulmonary process.
== END | disposition home or self-care (01) ==
LOC: RADXRMAIN 10:03
PROVIDERS: ATTEND Internal Medicine
DX: R05 Cough (principal); R09.81 Nasal congestion; R50.9 Fever, unspecified
CPT/HCPCS: 71046; 87635

== ENCOUNTER 2021-05-21 12:49 | Emergency (ER) | payer OTHER ==
[2021-05-21 12:56] VITALS: TEMP 97.5
[2021-05-21] MEDS ORDERED: IPRATROPIUM-ALBUTEROL 3 ML NEB INHALATION STA (13:07)
--- NOTE | 2021-05-21 13:15 | ED ---
SOB HPI - General Chief Complaint: Shortness of Breath Stated Complaint: diff breathing, bronchitis Source: patient Mode of arrival: ambulatory Limitations: no limitations - History of Present Illness Initial Comments: 36-year-old female with a history of asthma bronchitis started having symptoms several days ago cough with clear to possibly note he colored phlegm she did start 80s azithromycin today no steroids use her inhaler at home no relief. No fevers chills nausea vomiting sweats no other symptoms at this time no chest pain. She does states she had COVID-19 in early April of this year. No residual problems from that. She does state that normally she'll get steroids and antibiotic and possibly an inhaler MD Complaint: shortness of breath - Related Data Previous Rx's Medication Instructions Recorded Ibuprofen 800 mg PO TID #20 tablet 07/04/18 predniSONE [Deltasone] 20 mg PO BID #10 tab 05/21/21 Allergies Allergy/AdvReac Type Severity Reaction Status Date / Time No Known Allergies Allergy Verified 05/21/21 12:51 Review of Systems ROS Statement: Those systems with pertinent positive or pertinent negative responses have been documented in the HPI. ROS Other: All systems not noted in ROS Statement are negative. Past Medical History Past Medical History: Asthma Additional Past Medical History / Comment(s): sciatica and chronic back pain, left wrist fracture History of Any Multi-Drug Resistant Organisms: None Reported Past Surgical History: Section, Cholecystectomy, Tubal Ligation Additional Past Surgical History / Comment(s): sciatica, herniated lumbar disc, Past Anesthesia/Blood Transfusion Reactions: No Reported Reaction Past Psychological History: Anxiety, Depression Smoking Status: Never smoker Past Alcohol Use History: Occasional Past Drug Use History: Marijuana General Exam - General Exam Comments Initial Comments: A well up well-nourished awake alert oriented 3 female Limitations: no limitations General appearance: alert, anxious Head exam: Present: atraumatic, normocephalic, normal inspection Eye exam: Present: normal appearance, PERRL, EOMI. Absent: scleral icterus, conjunctival injection, periorbital swelling ENT exam: Present: normal exam, mucous membranes moist Neck exam: Present: normal inspection, full ROM, other. Absent: tenderness, meningismus, lymphadenopathy Respiratory exam: Present: wheezes, decreased breath sounds. Absent: respiratory distress, rales, rhonchi, stridor Cardiovascular Exam: Present: regular rate, normal rhythm, normal heart sounds. Absent: systolic murmur, diastolic murmur, rubs, gallop, clicks GI/Abdominal exam: Absent: distended, tenderness, guarding, rebound, rigid Extremities exam: Present: normal inspection, full ROM, normal capillary refill. Absent: tenderness, pedal edema, joint swelling, calf tenderness Back exam: Present: full ROM. Absent: tenderness Neurological exam: Present: alert, oriented X3, CN II-XII intact Psychiatric exam: Present: normal affect, normal mood Skin exam: Present: warm, dry, intact, normal color. Absent: rash Course Vital Signs 05/21/21 05/21/21 05/21/21 12:51 13:16 13:28 Temperature 97.5 F L Pulse Rate 81 84 Respiratory 18 20 Rate Blood Pressure 166/79 O2 Sat by Pulse 98 Oximetry 05/21/21 13:38 Temperature Pulse Rate 88 Respiratory Rate Blood Pressure O2 Sat by Pulse Oximetry Medical Decision Making - Medical Decision Making Patient has increased aeration after the nebulizer treatment does feel improved she also Disposition Clinical Impression: Asthmatic bronchitis, Bronchospasm, acute Disposition: HOME SELF-CARE Condition: Good Instructions (If sedation given, give patient instructions): Acute Bronchitis (ED), Bronchospasm (ED) Prescriptions: predniSONE [Deltasone] 20 mg PO BID #10 tab Is patient prescribed a controlled substance at d/c from ED?: No Referrals: Lana Redmond MD [Primary Care Provider] - 1-2 days
[2021-05-21 13:18] VITALS: RESP 20
[2021-05-21] MEDS ORDERED: predniSONE 50 MG TAB PO STA (13:58)
[2021-05-21 14:12] VITALS: BP 152/62; PULSE 80
== END 2021-05-21 14:12 | disposition home or self-care (01) ==
LOC: EC 12:49
DX: J45.909 Unspecified asthma, uncomplicated (principal)
CPT/HCPCS: 94640; 99284; J7512

== ENCOUNTER → 2021-06-08 | Outpatient (CLI) | payer OTHER ==
[2021-06-08 16:12] VITALS: BP 159/83; PULSE 85; RESP 16; TEMP 98.2; BMI 68.9
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
== END ==
LOC: BARWHC3 15:49
PROVIDERS: ATTEND Surgery Plastic and Reconstructive Surgery
DX: E66.01 Morbid (severe) obesity due to excess calories (principal); Z68.44 Body mass index [BMI] 60.0-69.9, adult
CPT/HCPCS: 99203

== ENCOUNTER 2021-08-08 09:14 | Day surgery (SDC) | payer OTHER ==
[2021-08-04 15:35] VITALS: BMI 68.9
--- NOTE | 2021-08-08 07:07 | P.GSHP ---
History of Present Illness H&P Date: 08/08/21 CHIEF COMPLAINT: GERD HISTORY OF PRESENT ILLNESS: The patient is a 36-year-old female who presents reports gastroesophageal reflux disease. Upper endoscopy was offered for further evaluation and management. PAST MEDICAL HISTORY: Please see list. PAST SURGICAL HISTORY: Please see list. MEDICATIONS: Please see list. ALLERGIES: Please see list. SOCIAL HISTORY: No illicit drug use FAMILY HISTORY: No reports of Crohn disease or ulcerative colitis. REVIEW OF ORGAN SYSTEMS: CONSTITUTIONAL: No reports of fevers or chills. GI: Denies any blood in stools or constipation. PHYSICAL EXAM: VITAL SIGNS: Stable GENERAL: Well-developed and pleasant in no acute distress. HEENT: No scleral icterus. Extraocular movements grossly intact. Moist buccal mucosa. NECK: Supple without lymphadenopathy. CHEST: Unlabored respirations. Equal bilateral excursions. CARDIOVASCULAR: Regular rate and rhythm. Distal 2+ pulses. ABDOMEN: Soft, nondistended. MUSCULOSKELETAL: No clubbing, cyanosis, or edema. ASSESSMENT: 1. Gastroesophageal reflux disease PLAN: 1. Recommend proceeding with an upper endoscopy Past Medical History Past Medical History: Asthma, GERD/Reflux, Osteoarthritis (OA), Sleep Apnea/CPAP/BIPAP Additional Past Medical History / Comment(s): sciatica and chronic back pain, DDD, carpal tunnel, herniated disc, NO CPAP, past hx. superficial blood clot in leg History of Any Multi-Drug Resistant Organisms: None Reported Past Surgical History: Section, Cholecystectomy, Tubal Ligation Additional Past Surgical History / Comment(s): sciatica, herniated lumbar disc, Past Anesthesia/Blood Transfusion Reactions: No Reported Reaction Smoking Status: Former smoker - Past Family History Sister(s) Family Medical History: Cancer Medications and Allergies Home Medications Medication Instructions Recorded Confirmed Type Albuterol Sulfate [Ventolin HFA] 1 - 2 puff INHALATION Q6H PRN 08/04/21 08/04/21 History Fluticasone/Umeclidin/Vilanter 1 inhalation INHALATION DAILY 08/04/21 08/04/21 History [Malvin Ramos 100-62.5-25] Allergies Allergy/AdvReac Type Severity Reaction Status Date / Time No Known Allergies Allergy Verified 08/04/21 15:32
[~2021-08-08 09:14] MED LIST: LACTATED RINGERS 1,000 ML IV SCH; LIDOCAINE 1% (10MG/ML) FOR IV START INTRADERMA PRN
[2021-08-08 10:19] VITALS: RESP 16; TEMP 96.5
[2021-08-08] MEDS ORDERED: GLYCOPYRROLATE 0.2 MG/ML 2 ML VIAL ONE (10:46)
[2021-08-08] MEDS ORDERED: KETAMINE 10 MG/ML 20 ML VIAL ONE (10:46)
[2021-08-08] MEDS ORDERED: MIDAZOLAM 2 MG/2 ML VIAL ONE (10:46)
[2021-08-08] MEDS ORDERED: PROPOFOL 10 MG/ML 20 ML VIAL IV ONE (10:46)
[2021-08-08] MEDS ORDERED: LIDOCAINE 2% INJ 20 MG/ML (2 ML VIAL) ONE (10:46)
--- NOTE | 2021-08-08 11:17 | P.PCN ---
Date of Procedure: 08/08/21 Description of Procedure: PREOPERATIVE DIAGNOSIS: Gastroesophageal reflux disease. Morbid obesity. POSTOPERATIVE DIAGNOSIS: Gastroesophageal reflux disease. Morbid obesity. Gastritis. OPERATION: Esophagogastroduodenoscopy with biopsies along antrum and duodenum SURGEON: Barb Perez MD ANESTHESIA: MAC. INDICATIONS: The patient is a 36-year-old female who presents with reflux disease. Benefits and risks of the procedure were described. Informed consent was obtained. DESCRIPTION: The patient was brought into the endoscopy suite and laid in the left lateral decubitus position. An Olympus gastroscope was passed along the posterior oropharynx down to the distal esophagus where the squamocolumnar junction was encountered at 40 cm from the incisors. The stomach was entered and no bile reflux was found. Additional findings are listed below. Biopsies with cold forceps were obtained of the antrum. The first through third portion of the duodenum was examined. Retroflexion of the scope confirmed Hill grade 2 lower esophageal valve. The squamocolumnar junction demonstrated LA grade B erosive esophagitis. The stomach was desufflated. The patient tolerated the procedure well. FINDINGS: Squamocolumnar junction 40 cm from the incisors. Diaphragmatic hiatus at 40 cm. Hill grade 2 lower esophageal valve. LA grade B erosive esophagitis. Cold forceps biopsies obtained of the duodenum Chronic gastritis RECOMMENDATIONS: Upper endoscopy as needed. Plan - Discharge Summary Discharge Rx Participant: No New Discharge Prescriptions: Continue Fluticasone/Umeclidin/Vilanter [Trelegy Ellipta 100-62.5-25] 1 inhalation INHALATION DAILY Albuterol Sulfate [Ventolin HFA] 1 - 2 puff INHALATION Q6H PRN PRN Reason: Shortness Of Breath Discharge Medication List Albuterol Sulfate [Ventolin HFA] 1 - 2 puff INHALATION Q6H PRN 08/04/21 [History] Fluticasone/Umeclidin/Vilanter [Trelegy Ellipta 100-62.5-25] 1 inhalation INHALATION DAILY 08/04/21 [History] Follow up [facility]ment(s[facility] [place] [facility] - [facility] Patient Instructions/Handouts: Gastritis (DC), Diet for Stomach Ulcers and Gastritis (GEN) Discharge Disposition: HOME SELF-CARE
[2021-08-08 11:38] VITALS: BP 126/72; PULSE 63
== END 2021-08-08 12:00 | disposition home or self-care (01) ==
LOC: ORWHC2ENDO 09:14
PROVIDERS: ATTEND Surgery Plastic and Reconstructive Surgery
DX: K21.00 Gastro-esophageal reflux disease with esophagitis, without bleeding (principal); K29.50 Unspecified chronic gastritis without bleeding; E66.01 Morbid (severe) obesity due to excess calories; J45.909 Unspecified asthma, uncomplicated; M19.90 Unspecified osteoarthritis, unspecified site; M54.30 Sciatica, unspecified side; G89.29 Other chronic pain; M54.9 Dorsalgia, unspecified; G47.33 Obstructive sleep apnea (adult) (pediatric); F41.9 Anxiety disorder, unspecified; F32.A Depression, unspecified; G56.00 Carpal tunnel syndrome, unspecified upper limb; Z68.44 Body mass index [BMI] 60.0-69.9, adult; Z87.891 Personal history of nicotine dependence; Z79.51 Long term (current) use of inhaled steroids; Z79.899 Other long term (current) drug therapy; Z98.891 History of uterine scar from previous surgery; Z90.49 Acquired absence of other specified parts of digestive tract; Z98.51 Tubal ligation status; Z80.9 Family history of malignant neoplasm, unspecified
CPT/HCPCS: 81025; 88305; 43239; J2250; J2704; J2001

== ENCOUNTER 2021-08-25 23:18 | Emergency (ER) | payer OTHER ==
[2021-08-25 23:41] VITALS: TEMP 98.3
--- NOTE | 2021-08-26 00:27 | XR ---
EXAMINATION TYPE: XR chest 2V DATE OF EXAM: 08/26/2021 COMPARISON: 11/20/2020 HISTORY: Short of breath TECHNIQUE: FINDINGS: Heart is normal. There is a small linear density right lower lung field. Diaphragm is donnie l. Bony thorax is intact. No pleural effusion. Thoracic spine is intact. IMPRESSION: There is small linear density right lower lung field consistent with focal atelectasis wh ich is a change compared to old exam. Normal heart.
[2021-08-26 01:37] VITALS: RESP 18
[2021-08-26] MEDS ORDERED: methylPREDNISolone SOD SUCCI 125 MG/2 ML VIAL IM STA (01:38)
[2021-08-26] MEDS ORDERED: AZITHROMYCIN 500 MG TAB PO STA (01:39)
[2021-08-26] MEDS ORDERED: IPRATROPIUM-ALBUTEROL 3 ML NEB INHALATION STA (01:39)
--- NOTE | 2021-08-26 02:04 | ED ---
SOB HPI - General Chief Complaint: Shortness of Breath Stated Complaint: Shortness of Breath Time Seen by Provider: 08/26/21 01:28 Source: patient, RN notes reviewed Mode of arrival: ambulatory Limitations: no limitations - History of Present Illness Initial Comments: This is a pleasant 36-year-old female presents to emergency department stating that she has chronic bronchitis and she has been out of her inhaler for several days. Patient states that she has her albuterol inhaler but does not have the controller medication. Patient states she has had wheezing. Patient took a breathing treatment home tonight and states that she continues to have wheezing. She denies any fever or chills. No peripheral edema. No chest pain. No headache, no fever or chills, no changes in vision or hearing, no sore throat or difficulty with speech, no neck pain, no chest pain, no abdominal pain, no nausea or vomiting, no changes in urination or bowel movements, no numbness or tingling, no extremity pain, no skin rashes or lesions. MD Complaint: shortness of breath, cough - Related Data Home Medications Medication Instructions Recorded Confirmed Albuterol Sulfate [Ventolin HFA] 1 - 2 puff INHALATION Q6H PRN 08/04/21 08/10/21 Fluticasone/Umeclidin/Vilanter 1 inhalation INHALATION DAILY 08/04/21 08/10/21 [Trelegy Ellipta 100-62.5-25] Previous Rx's Medication Instructions Recorded Azithromycin [Zithromax Z-pack (6 250 mg PO DIRECTED #6 tab 08/26/21 tabs)] Fluticasone/Umeclidin/Vilanter 1 inhalation INHALATION DAILY #1 08/26/21 [Trelegy Ellipta 100-62.5-25] each predniSONE 50 mg PO DAILY #5 tab 08/26/21 Allergies Allergy/AdvReac Type Severity Reaction Status Date / Time No Known Allergies Allergy Verified 08/25/21 23:38 Review of Systems ROS Statement: Those systems with pertinent positive or pertinent negative responses have been documented in the HPI. ROS Other: All systems not noted in ROS Statement are negative. Past Medical History Past Medical History: Asthma, GERD/Reflux, Osteoarthritis (OA), Sleep Apnea/CPAP/BIPAP Additional Past Medical History / Comment(s): sciatica and chronic back pain, DDD, carpal tunnel, herniated disc, NO CPAP, past hx. superficial blood clot in leg History of Any Multi-Drug Resistant Organisms: None Reported Past Surgical History: Section, Cholecystectomy, Tubal Ligation Additional Past Surgical History / Comment(s): sciatica, herniated lumbar disc, Past Anesthesia/Blood Transfusion Reactions: No Reported Reaction Past Psychological History: Anxiety, Depression Smoking Status: Former smoker Past Alcohol Use History: Occasional Past Drug Use History: Marijuana - Past Family History Sister(s) Family Medical History: Cancer General Exam Limitations: no limitations General appearance: alert, in no apparent distress Head exam: Present: atraumatic, normocephalic, normal inspection Eye exam: Present: normal appearance, PERRL, EOMI. Absent: scleral icterus, conjunctival injection, periorbital swelling ENT exam: Present: normal exam, normal oropharynx, mucous membranes moist, normal external ear exam Neck exam: Present: normal inspection, full ROM. Absent: tenderness, meningismus, lymphadenopathy Respiratory exam: Present: wheezes, prolonged expiratory. Absent: respiratory distress, rales, rhonchi, stridor, chest wall tenderness, accessory muscle use, decreased breath sounds Cardiovascular Exam: Present: regular rate, normal rhythm, normal heart sounds. Absent: systolic murmur, diastolic murmur, rubs, gallop, clicks GI/Abdominal exam: Present: soft, normal bowel sounds. Absent: distended, tenderness, guarding, rebound, rigid Extremities exam: Present: normal inspection, full ROM, normal capillary refill. Absent: tenderness, pedal edema, joint swelling, calf tenderness Back exam: Present: normal inspection Neurological exam: Present: alert, oriented X3, CN II-XII intact Psychiatric exam: Present: normal affect, normal mood Skin exam: Present: warm, dry, intact, normal color. Absent: rash Course Vital Signs 08/25/21 08/26/21 08/26/21 23:38 01:34 02:30 Temperature 98.3 F Pulse Rate 79 76 Respiratory 16 18 Rate Blood Pressure 158/87 O2 Sat by Pulse 98 Oximetry - Reevaluation(s) Reevaluation #1: 08/26/21 02:25 Medical record is reviewed Symptoms are improved here in the emergency department Patient is informed of results and questions answered Patient in no distress Reevaluation #2: 08/26/21 02:32 Patient improved after the breathing treatment. Patient deferring any labo ratory work stating she has an appointment tomorrow. Medical Decision Making - Medical Decision Making Patient presents with what appears to be a COPD exacerbation. Patient states she quit smoking 3 years ago. She has no peripheral edema. No chest pain. Patient has been out of her controller medication for several days. We'll treat with corticosteroids, bronchodilators. Patient has an appointment tomorrow with her primary care physician. Patient was told to return to the ER for any signs or symptoms worsen. Told to return immediately if any other problems arise. All questions answered. Treatment plan discussed. Patient in agreement Every effort has been made to ensure accuracy of this dictation. However, due to the limitations of electronic medical records and dictation devices, errors in charting still occur. Finance Attorney, Dr. Klein - Lab Data Lab Results 08/26/21 08/26/21 Range/Units 01:00 01:00 Coronavirus (PCR) Not Detected (Not Detectd) Influenza Type A RNA Not Detected (Not Detectd) Influenza Type B (PCR) Not Detected (Not Detectd) - Radiology Data Radiology results: report reviewed, image reviewed Disposition Clinical Impression: COPD exacerbation, Elevated blood pressure reading Disposition: HOME SELF-CARE Condition: Good Instructions (If sedation given, give patient instructions): COPD (Chronic Obstructive Pulmonary Disease) (ED), Hypertension (ED) Additional Instructions: Follow-up with your regular physician as directed. Return to the ER immediately if any symptoms worsen, new symptoms arise, or any other problems develop. Prescriptions: predniSONE 50 mg PO DAILY #5 tab Fluticasone/Umeclidin/Vilanter [Trelegy Ellipta 100-62.5-25] 1 inhalation INHALATION DAILY #1 each Is patient prescribed a controlled substance at d/c from ED?: No Referrals: Orville Alamo MD [Primary Care Provider] - 08/26/21 9:00 am Time of Disposition: 02:22
[2021-08-26 02:40] VITALS: PULSE 74
[2021-08-26 02:49] VITALS: BP 145/86
== END 2021-08-26 02:49 | disposition home or self-care (01) ==
LOC: EC 23:18
DX: J44.1 Chronic obstructive pulmonary disease with (acute) exacerbation (principal); R03.0 Elevated blood-pressure reading, without diagnosis of hypertension; M19.90 Unspecified osteoarthritis, unspecified site; Z20.822 Contact with and (suspected) exposure to COVID-19; Z87.891 Personal history of nicotine dependence; F41.9 Anxiety disorder, unspecified; F32.A Depression, unspecified; Z72.89 Other problems related to lifestyle; F12.90 Cannabis use, unspecified, uncomplicated; Z79.51 Long term (current) use of inhaled steroids
CPT/HCPCS: 94640; 87502; 87635; 71046; 99285; 96372; J2930

== ENCOUNTER → 2021-09-01 | Outpatient (CLI) | payer OTHER ==
[2021-09-01 08:56] LABS: Partial Thromboplastin Time 22.6 sec (22.0-30.0); Prothrombin Time 10.5 sec (9.0-12.0)
[2021-09-01 10:38] LABS: Basophils # (A) 0.09 X 10*3/uL (0.00-0.10); Basophils % (A) 0.8 %; Eosinophils # (A) 0.28 X 10*3/uL (0.04-0.35); Eosinophils % (A) 2.6 %; HCT 35.5 % (37.2-46.3); HGB 12.2 g/dL (12.0-15.0); Immature Grans, Automated 0.7 %; Lymphocytes # (A) 3.29 X 10*3/uL (0.90-5.00); Lymphocytes % (A) 30.2 %; MCH 31.7 pg (27.0-32.0); MCHC 34.4 g/dL (32.0-37.0); MCV 92.2 fL (80.0-97.0); Monocytes # (A) 0.51 X 10*3/uL (0.20-1.00); Monocytes % (A) 4.7 %; NRBC Per 100 WBC 0 /100 WBCS (0.0-0.0); Neutrophils # (A) 6.65 X 10*3/uL (1.80-7.70); Platelet Count 268 X 10*3/uL (140-440); RBC 3.85 X 10*6/uL (4.10-5.20); RDW 14.1 % (11.5-14.5)
[2021-09-01 11:15] LABS: ALT 25 U/L (8-44); AST 15 U/L (13-35); African American GFR (CKD) 121.9 (60.0-200.0); Albumin 3.8 g/dL (3.8-4.9); Albumin/Globulin Ratio 1.37 (1.60-3.17); Alkaline Phosphatase 56 U/L (41-126); Blood Urea Nitrogen 17.5 mg/dL (9.0-27.0); Calcium 8.6 mg/dL (8.7-10.3); Carbon Dioxide 24.5 mmol/L (20.0-27.5); Chloride 105 mmol/L (96-109); Ferritin 41.9 ng/mL (10.0-291.0); Globulin 2.8 g/dL (1.6-3.3); Glucose 94 mg/dL (70-110); Iron 58 ug/dL (50-170); Non-African American GFR(CKD) 105.2 (60.0-200.0); Phosphorus 3.9 mg/dL (2.4-5.1); Sodium 141 mmol/L (135-145); Total Iron Binding Capacity 374 ug/dL (228-460); Total Protein 6.6 g/dL (6.2-8.2)
[2021-09-01 11:16] LABS: Chol/HDL Ratio 2.97 Ratio; LDL Cholesterol,Calculated 54.6 mg/dL (0.0-131.0); Prealbumin 26.1 mg/dL (18.0-42.0)
[2021-09-02 14:15] LABS: Zinc, Serum 60 ug/dL (60-130)
[2021-09-03 11:40] LABS: Anabasine Urine <2.0 ng/mL (<2.0)
[2021-09-05 06:34] LABS: Vit B1(Thiamine) 79 ug/L (38-122)
[2021-09-05 07:16] LABS: Vitamin A 60 ug/dL (38-106)
[2021-09-05 17:35] LABS: Selenium 142 mcg/L (63-160)
== END | disposition home or self-care (01) ==
LOC: LABWHC1 07:34
PROVIDERS: ATTEND Surgery Plastic and Reconstructive Surgery
DX: Z00.00 Encounter for general adult medical examination without abnormal findings (principal); Z11.59 Encounter for screening for other viral diseases; E89.1 Postprocedural hypoinsulinemia; D50.8 Other iron deficiency anemias; D50.9 Iron deficiency anemia, unspecified; E44.0 Moderate protein-calorie malnutrition; E44.1 Mild protein-calorie malnutrition; E55.9 Vitamin D deficiency, unspecified; K74.1 Hepatic sclerosis; N19 Unspecified kidney failure; T56.894A Toxic effect of other metals, undetermined, initial encounter; K50.90 Crohn's disease, unspecified, without complications
CPT/HCPCS: 84255; 84134; 86803; 84439; 84425; 80061; 80053; 82607; 82728; 82525; 82746; 83540; 83550; 83735; 84100; 84443; 84590; 84630; 85025; 85610; 85730; 82306; 83970; 83036; 80307; 93005; 36415; G0480; 80323

== ENCOUNTER 2021-10-05 18:52 | Emergency (ER) | payer OTHER ==
[2021-10-05 19:01] VITALS: BP 166/96; PULSE 73; RESP 20; TEMP 98.2
[2021-10-05] MEDS ORDERED: SULFAMETHOX-TMP 800-160MG 1 EACH TAB PO STA (19:37)
--- NOTE | 2021-10-05 20:08 | ED ---
Skin/Abscess/FB HPI - General Chief complaint: Skin/Abscess/Foreign Body Stated complaint: LT knee pain and infected boil Time Seen by Provider: 10/05/21 19:09 Source: patient Mode of arrival: ambulatory Limitations: no limitations - History of Present Illness Initial comments: Patient is a 36-year-old female presenting with left knee pain and a boil to the vulva. Patient states that for the last few weeks she has had left knee pain, no known injury. Patient states the pain is worse with flexion and transitioning from sitting to standing. Patient admits to pain to standing and weightbearing, however it is not as bad as with flexion. Patient has been taking diclofenac as prescribed by her PCP. Patient also states that she has a bump to the vulva that is in there for a few days, she has been applying warm compresses, yesterday the area drained on itself, patient states that now there is an open area with clear discharge. - Related Data Home Medications Medication Instructions Recorded Confirmed Albuterol Sulfate [Ventolin HFA] 1 - 2 puff INHALATION Q6H PRN 08/04/21 08/10/21 Fluticasone/Umeclidin/Vilanter 1 inhalation INHALATION DAILY 08/04/21 08/10/21 [Trelegy Ellipta 100-62.5-25] Previous Rx's Medication Instructions Recorded Azithromycin [Zithromax Z-pack (6 250 mg PO DIRECTED #6 tab 08/26/21 tabs)] Fluticasone/Umeclidin/Vilanter 1 inhalation INHALATION DAILY #1 08/26/21 [Trelegy Ellipta 100-62.5-25] each predniSONE 50 mg PO DAILY #5 tab 08/26/21 Sulfamethox-Tmp 800-160Mg [Bactrim 1 tab PO Q12HR 7 Days #14 tab 10/05/21 DS 800-160 mg] Allergies Allergy/AdvReac Type Severity Reaction Status Date / Time No Known Allergies Allergy Verified 10/05/21 19:01 Review of Systems ROS Statement: Those systems with pertinent positive or pertinent negative responses have been documented in the HPI. ROS Other: All systems not noted in ROS Statement are negative. Past Medical History Past Medical History: Asthma, GERD/Reflux, Osteoarthritis (OA), Sleep Apnea/CPAP/BIPAP Additional Past Medical History / Comment(s): sciatica and chronic back pain, DDD, carpal tunnel, herniated disc, NO CPAP, past hx. superficial blood clot in leg History of Any Multi-Drug Resistant Organisms: None Reported Past Surgical History: Section, Cholecystectomy, Tubal Ligation Additional Past Surgical History / Comment(s): sciatica, herniated lumbar disc, Past Anesthesia/Blood Transfusion Reactions: No Reported Reaction Past Psychological History: Anxiety, Depression Smoking Status: Former smoker Past Alcohol Use History: Occasional Past Drug Use History: Marijuana - Past Family History Sister(s) Family Medical History: Cancer General Exam Limitations: no limitations General appearance: alert, in no apparent distress Head exam: Present: atraumatic, normocephalic, normal inspection Eye exam: Present: normal appearance, EOMI. Absent: scleral icterus, periorbital swelling Neck exam: Present: normal inspection External exam: Present: other (open boil with induration around the borders.) Extremities exam: Present: normal inspection, full ROM (Pain with range of motion of left knee), tenderness (Left knee), normal capillary refill Neurological exam: Present: alert, oriented X3, CN II-XII intact Psychiatric exam: Present: normal affect, normal mood Skin exam: Present: warm, dry, intact, normal color. Absent: rash Course Vital Signs 10/05/21 18:59 Temperature 98.2 F Pulse Rate 73 Respiratory 20 Rate Blood Pressure 166/96 O2 Sat by Pulse 96 Oximetry Medical Decision Making - Medical Decision Making Patient is a 36-year-old female presenting with chief complaint of left knee pain and a boil to her vulva. She states the boil has been there for the last few days, she has basically warm compresses and yesterday began draining. The pain has been there for several weeks, she is taking diclofenac from her PCP, however reports no improvement. On examination patient has full range of motion to the knee but does admit to pain. There is tenderness to the lateral edge of the knee she denies any injury. There appears to have been a previous abscess to the vulva, there is an open wound with some induration. There is no purulent drainage or redness or warmth. X-ray of the knee shows no fracture or dislocation, indicates osteoarthritis. Patient was placed on Bactrim, she is given a Ultram starter pack. Instructed to follow-up with PCP, report back to ER with any new or worsening symptoms. Discussed return parameters answered all questions. Patient conveyed verbal understanding and agreed to the plan. I discussed this case with my attending Dr. Ray. Disposition Clinical Impression: Osteoarthritis of left knee, Abscess Disposition: HOME SELF-CARE Condition: Good Instructions (If sedation given, give patient instructions): Osteoarthritis (ED), Abscess (ED) Additional Instructions: Follow-up with PCP 1-2 days. Report back to ER with any new or worsening symptoms. Take medication as prescribed. Supportive treatment with Motrin, Tylenol, rest, icing, stretching may be beneficial. Prescriptions: Sulfamethox-Tmp 800-160Mg [Bactrim DS 800-160 mg] 1 tab PO Q12HR 7 Days #14 tab Is patient prescribed a controlled substance at d/c from ED?: No Referrals: Orville Alamo MD [Primary Care Provider] - 1-2 days Time of Disposition: 21:20
[2021-10-05] MEDS ORDERED: KETOROLAC 15 MG/ML 1 ML VIAL IM STA (20:36)
--- NOTE | 2021-10-05 20:39 | XR ---
EXAMINATION TYPE: XR knee complete LT DATE OF EXAM: 10/05/2021 COMPARISON: NONE HISTORY: Knee pain TECHNIQUE: 3 views FINDINGS: There is spurring of the femoral and tibial condyles. I see no fracture nor dislocation. Th ere is narrowing and spurring at the patellofemoral joint. IMPRESSION: Osteoarthritis. No fracture seen.
[2021-10-05] MEDS ORDERED: LIDOCAINE 5% PATCH TOPICAL SCH (21:00)
[2021-10-05] MEDS ORDERED: traMADol 50 MG STARTER PACK 3 TAB BTL PO STA (21:24)
== END 2021-10-05 21:47 | disposition home or self-care (01) ==
LOC: EC 18:52
DX: M17.12 Unilateral primary osteoarthritis, left knee (principal); N76.4 Abscess of vulva; K21.9 Gastro-esophageal reflux disease without esophagitis; J45.909 Unspecified asthma, uncomplicated; F12.90 Cannabis use, unspecified, uncomplicated; Z87.891 Personal history of nicotine dependence; Z79.51 Long term (current) use of inhaled steroids
CPT/HCPCS: 73562; 99283; 96372; J1885

== ENCOUNTER 2021-10-07 17:27 | Emergency (ER) | payer OTHER ==
[2021-10-07 17:31] VITALS: RESP 20
[2021-10-07] MEDS ORDERED: MORPHINE SULFATE 4 MG/ML SYRINGE IM STA (19:47)
[2021-10-07] MEDS ORDERED: ONDANSETRON ODT 4 MG TAB PO STA (19:47)
--- NOTE | 2021-10-07 20:46 | ED ---
General Adult HPI - General Chief complaint: Extremity Injury, Lower Stated complaint: knee pain-revisit Time Seen by Provider: 10/07/21 19:03 Source: patient, RN notes reviewed Mode of arrival: ambulatory Limitations: no limitations - History of Present Illness Initial comments: This is a 36-year-old female who presents to the emergency department for evaluation of persistent left knee pain. Patient states she has had intermittent knee pain for several years, though has had an increase in pain the past few months. Patient states she has been taking diclofenac regularly as prescribed by her PCP. States this had been helping until the past week. States she was seen in the emergency department earlier this week and given a prescription for a steroid which she has been taking as directed. States she was also given 3 Ultram, but has had minimal improvement in her pain. took a total of 1200 mg of Motrin throughout the day and one thousand milligrams of Tylenol with no improvement. States pain is unaffected by weightbearing or range of motion activity. States she has noticed increased swelling distal to the left knee and pain extends to the left foot. Denies injury or trauma. No recent travel, long car rides, prolonged immobilization, chest pain, shortness of breath, or difficulty breathing. - Related Data Home Medications Medication Instructions Recorded Confirmed Albuterol Sulfate [Ventolin HFA] 1 - 2 puff INHALATION Q6H PRN 08/04/21 08/10/21 Fluticasone/Umeclidin/Vilanter 1 inhalation INHALATION DAILY 08/04/21 08/10/21 [Trelegy Ellipta 100-62.5-25] Previous Rx's Medication Instructions Recorded Azithromycin [Zithromax Z-pack (6 250 mg PO DIRECTED #6 tab 08/26/21 tabs)] Fluticasone/Umeclidin/Vilanter 1 inhalation INHALATION DAILY #1 08/26/21 [Trelegy Ellipta 100-62.5-25] each predniSONE 50 mg PO DAILY #5 tab 08/26/21 Sulfamethox-Tmp 800-160Mg [Bactrim 1 tab PO Q12HR 7 Days #14 tab 10/05/21 DS 800-160 mg] HYDROcodone/APAP 10-325MG [Hanna 1 tab PO Q6HR PRN #8 tab 10/07/21 10-325] Ondansetron Odt [Zofran Odt] 4 mg PO Q8HR PRN #10 tab 10/07/21 Allergies Allergy/AdvReac Type Severity Reaction Status Date / Time No Known Allergies Allergy Verified 10/07/21 17:31 Review of Systems ROS Statement: Those systems with pertinent positive or pertinent negative responses have been documented in the HPI. ROS Other: All systems not noted in ROS Statement are negative. Past Medical History Past Medical History: Asthma, GERD/Reflux, Osteoarthritis (OA), Sleep Apnea/CPAP/BIPAP Additional Past Medical History / Comment(s): sciatica and chronic back pain, DDD, carpal tunnel, herniated disc, NO CPAP, past hx. superficial blood clot in leg History of Any Multi-Drug Resistant Organisms: None Reported Past Surgical History: Section, Cholecystectomy, Tubal Ligation Additional Past Surgical History / Comment(s): sciatica, herniated lumbar disc, Past Anesthesia/Blood Transfusion Reactions: No Reported Reaction Past Psychological History: ADD/ADHD, Anxiety, Depression Smoking Status: Former smoker Past Alcohol Use History: Occasional Past Drug Use History: Marijuana - Past Family History Sister(s) Family Medical History: Cancer General Exam Limitations: no limitations General appearance: alert, in distress (developed, well-nourished female in moderate distress due to pain. Initial temperature 97.8, pulse 88, respirations 20, blood pressure 167/80, pulse ox 97% on room air.), other (patient is well- appearing but tearful due to pain upon initial exam.) Eye exam: Present: normal appearance. Absent: scleral icterus, conjunctival injection, periorbital swelling ENT exam: Present: normal exam, normal oropharynx, mucous membranes moist Respiratory exam: Present: normal lung sounds bilaterally. Absent: respiratory distress, wheezes, rales, rhonchi, stridor, chest wall tenderness Cardiovascular Exam: Present: regular rate, normal rhythm, normal heart sounds. Absent: systolic murmur, diastolic murmur, rubs, gallop, clicks GI/Abdominal exam: Present: soft, normal bowel sounds. Absent: distended, tenderness, guarding, rebound, rigid Left Upper Leg exam: Present: normal inspection, full ROM. Absent: tenderness, swelling Knee exam: Present: normal inspection, full ROM, tenderness (tenderness upon palpation surrounding the patella and postero-medial aspect of the left knee). Absent: swelling, abrasion, laceration, ecchymosis, deformity, crepitus, dislocation, erythema, full knee extension Lower Leg exam: Present: normal inspection, full ROM, swelling (trace, nonpitting pretibial edema). Absent: tenderness, abrasion, laceration, erythema, Homans' sign Ankle exam: Present: normal inspection, full ROM. Absent: tenderness, swelling Foot/Toe exam: Present: normal inspection, full ROM, swelling (mild trace, nonpitting edema of the left foot). Absent: tenderness Neurovascular tendon exam: Present: no vascular compromise. Absent: pulse deficit, abnormal cap refill, motor deficit, sensory deficit, extremity cold to touch Back exam: Present: normal inspection, full ROM Neurological exam: Present: alert, oriented X3, normal gait Psychiatric exam: Present: anxious Skin exam: Present: warm, dry, intact, normal color. Absent: rash Course Vital Signs 10/07/21 10/07/21 17:29 22:27 Temperature 97.8 F 98.2 F Pulse Rate 88 66 Respiratory 20 20 Rate Blood Pressure 167/80 150/89 O2 Sat by Pulse 97 98 Oximetry - Reevaluation(s) Reevaluation #1: 10/07/21 21:00 Upon reassessment, patient is resting more comfortably. Discussed results of workup. Gokul wrap is applied. She will be prescribed a short course of pain medication and instructed to follow up with her PCP as scheduled. Medical Decision Making - Medical Decision Making 36-year-old female presents to the emergency department for repeat visit of left knee pain. Upon exam, patient is tearful and uncomfortable, though her physical exam findings are unremarkable. She had previous imaging done with no new injury or trauma. Reports worsening swelling of the left lower extremity therefore Doppler study was obtained which was negative for DVT. Patient was given morphine IM for pain with some improvement. She is discharged home to follow up with her PCP for a recheck this week. She is prescribed a short course of Hanna and advised on the associated risks. Return parameters discussed in detail. Patient verbalizes understanding and agrees with this plan. Attending: Saturnino. - Radiology Data Radiology results: report reviewed, image reviewed Venous Doppler study of the left lower extremity was obtained. Report was reviewed in its entirety. Impression per Dr. Vargas is no evidence of deep vein thrombosis in the left leg. Disposition Clinical Impression: Left knee pain Disposition: HOME SELF-CARE Condition: Stable Instructions (If sedation given, give patient instructions): Knee Pain (ED) Additional Instructions: Maintain mobility with gentle stretching and frequent ambulation. Rest as needed. May apply ice for no more than 20 minutes per hour. Gokul wrap is for compression. Use if therapeutic. May take motrin if needed for mild pain. [place] Hanna for more severe pain. Zofran for nausea. Keep follow-up appointment with PCP as scheduled. Return to the emergency department with any new, worsening, or concerning symptoms. Prescriptions: HYDROcodone/APAP 10-325MG [Hanna 10-325] 1 tab PO Q6HR PRN #8 tab PRN Reason: Pain Ondansetron Odt [Zofran Odt] 4 mg PO Q8HR PRN #10 tab PRN Reason: Nausea Is patient prescribed a controlled substance at d/c from ED?: Yes When asked, does pt state using other controlled substances?: Yes If prescribed controlled substance>3 days was MAPS reviewed?: Prescribed <3 Days If opioid is for acute pain is fill amount 7 days or less?: Yes If Rx opioid, was Start Talking consent form obtained?: Yes Referrals: Orville Alamo MD [Primary Care Provider] - 1-2 days Time of Disposition: 21:37
--- NOTE | 2021-10-07 20:53 | US ---
EXAMINATION TYPE: US venous doppler duplex LE LT DATE OF EXAM: 10/07/2021 7:48 PM COMPARISON: NONE CLINICAL HISTORY: Left lower extremity pain and swelling. left leg pain and edema for 2 weeks. joselyntin g worse SIDE PERFORMED: left TECHNIQUE: The lower extremity deep venous system is examined utilizing real time linear array sonog charlie with graded compression, doppler sonography and color-flow sonography. VESSELS IMAGED: Common Femoral Vein Deep Femoral Vein Greater Saphenous Vein * Femoral Vein Popliteal Vein Small Saphenous Vein * Proximal Calf Veins (* superficial vessels) Left Leg: limitations due to patient's body habitus. no evidence of DVT as visualized IMPRESSION: No evidence of deep vein thrombosis in the left leg.
[2021-10-07 22:27] VITALS: BP 150/89; PULSE 66; TEMP 98.2
== END 2021-10-07 22:27 | disposition home or self-care (01) ==
LOC: EC 17:27
DX: M25.562 Pain in left knee (principal); J45.909 Unspecified asthma, uncomplicated; K21.9 Gastro-esophageal reflux disease without esophagitis; M19.90 Unspecified osteoarthritis, unspecified site; F41.9 Anxiety disorder, unspecified; F32.A Depression, unspecified; Z87.891 Personal history of nicotine dependence; F12.90 Cannabis use, unspecified, uncomplicated; Z79.51 Long term (current) use of inhaled steroids; Z79.899 Other long term (current) drug therapy
CPT/HCPCS: 93971; 99283; 96372; J2270

== ENCOUNTER 2022-02-01 07:04 | Emergency (ER) | payer OTHER ==
[2022-02-01 07:11] VITALS: BP 167/102; PULSE 81; RESP 18; TEMP 98.6
[2022-02-01] MEDS ORDERED: DIPHENOX-ATROP 2.5-0.025 MG 1 EACH TAB PO STA ×2 (07:31→07:47)
[2022-02-01] MEDS ORDERED: DIPHENOX-ATROP STARTER PACK 8 TAB BTL PO STA (07:31)
--- NOTE | 2022-02-01 07:35 | ED ---
General Adult HPI - General Chief complaint: Nausea/Vomiting/Diarrhea Stated complaint: Diarrhea, abd pain Time Seen by Provider: 02/01/22 07:10 Source: patient, RN notes reviewed, old records reviewed Mode of arrival: ambulatory Limitations: no limitations - History of Present Illness Initial comments: This is a 36-year-old female who presents emergency Department complaining that she had diarrhea starting last night she probably caught it doesn't times. Patient denies any nausea vomiting. Patient denies any abdominal pain. Patient states she still able to tolerate oral fluids. Patient denies any fever chills. Patient states this happened about a week ago and then it stopped after one day. Patient denies any other complaints at this time. Patient denies chest pain or difficulty breathing. Patient denies any dysuria hematuria urinary frequency. - Related Data Home Medications Medication Instructions Recorded Confirmed Albuterol Sulfate [Ventolin HFA] 1 - 2 puff INHALATION Q6H PRN 08/04/21 08/10/21 Fluticasone/Umeclidin/Vilanter 1 inhalation INHALATION DAILY 08/04/21 08/10/21 [Trelegy Ellipta 100-62.5-25] Previous Rx's Medication Instructions Recorded Azithromycin [Zithromax Z-pack (6 250 mg PO DIRECTED #6 tab 08/26/21 tabs)] Fluticasone/Umeclidin/Vilanter 1 inhalation INHALATION DAILY #1 08/26/21 [Trelegy Ellipta 100-62.5-25] each predniSONE 50 mg PO DAILY #5 tab 08/26/21 Sulfamethox-Tmp 800-160Mg [Bactrim 1 tab PO Q12HR 7 Days #14 tab 10/05/21 DS 800-160 mg] HYDROcodone/APAP 10-325MG [[place] 1 tab PO Q6HR PRN #8 tab 10/07/21 10-325] Ondansetron Odt [Zofran Odt] 4 mg PO Q8HR PRN #10 tab 10/07/21 Allergies Allergy/AdvReac Type Severity Reaction Status Date / Time No Known Allergies Allergy Verified 02/01/22 07:11 Review of Systems ROS Statement: Those systems with pertinent positive or pertinent negative responses have been documented in the HPI. ROS Other: All systems not noted in ROS Statement are negative. Past Medical History Past Medical History: Asthma, GERD/Reflux, Osteoarthritis (OA), Sleep Apnea/CPAP/BIPAP Additional Past Medical History / Comment(s): sciatica and chronic back pain, DDD, carpal tunnel, herniated disc, NO CPAP, past hx. superficial blood clot in leg History of Any Multi-Drug Resistant Organisms: None Reported Past Surgical History: Section, Cholecystectomy, Tubal Ligation Additional Past Surgical History / Comment(s): sciatica, herniated lumbar disc, Past Anesthesia/Blood Transfusion Reactions: No Reported Reaction Past Psychological History: ADD/ADHD, Anxiety, Depression Smoking Status: Former smoker Past Alcohol Use History: Occasional Past Drug Use History: Marijuana - Past Family History Sister(s) Family Medical History: Cancer General Exam - General Exam Comments Initial Comments: GENERAL: Patient is well-developed and well-nourished. Patient is nontoxic and well- hydrated and is in no acute distress. ENT: Neck is soft and supple. No significant lymphadenopathy is noted. Oropharynx is clear. Moist mucous membranes. Neck has full range of motion without eliciting any pain. EYES: The sclera were anicteric and conjunctiva were pink and moist. Extraocular movements were intact and pupils were equal round and reactive to light. Eyelids were unremarkable. PULMONARY: Unlabored respirations. Good breath sounds bilaterally. No audible rales rhonchi or wheezing was noted. CARDIOVASCULAR: There is a regular rate and rhythm without any murmurs gallops or rubs. ABDOMEN: Soft and nontender with normal bowel sounds. SKIN: Skin is clear with no lesions or rashes and otherwise unremarkable. NEUROLOGIC: Patient is alert and oriented x3. Cranial nerves II through XII are grossly intact. Motor and sensory are also intact. Normal speech, volume and content. Symmetrical smile. MUSCULOSKELETAL: Normal extremities with adequate strength and full range of motion. LYMPHATICS: No significant lymphadenopathy is noted PSYCHIATRIC: Normal psychiatric evaluation. Limitations: no limitations Course Vital Signs 02/01/22 07:09 Temperature 98.6 F Pulse Rate 81 Respiratory 18 Rate Blood Pressure 167/102 O2 Sat by Pulse 99 Oximetry Medical Decision Making - Medical Decision Making Patient was given [facility] emergency department. Patient moist mucous membranes. Patient's able tolerate fluids. Patient has no significant medical problems. Labs I don't believe will be necessary because patient is not dehydrated and she is only been having diarrhea since last evening. Patient's vitals are stable and she has no pain Disposition Clinical Impression: Acute diarrhea Disposition: HOME SELF-CARE Instructions (If sedation given, give patient instructions): Acute Diarrhea (ED) Additional Instructions: Patient should take Lomotil as prescribed do not take it if you are not helping diarrhea Is patient prescribed a controlled substance at d/c from ED?: No Referrals: Orville Alamo MD [Primary Care Provider] - 1-2 days Time of Disposition: 07:34
== END 2022-02-01 08:25 | disposition home or self-care (01) ==
LOC: EC 07:04
DX: R19.7 Diarrhea, unspecified (principal); J45.909 Unspecified asthma, uncomplicated; M19.90 Unspecified osteoarthritis, unspecified site; G47.30 Sleep apnea, unspecified; F90.9 Attention-deficit hyperactivity disorder, unspecified type; F41.9 Anxiety disorder, unspecified; F32.A Depression, unspecified; F12.90 Cannabis use, unspecified, uncomplicated; Z87.891 Personal history of nicotine dependence; Z79.51 Long term (current) use of inhaled steroids; Z79.899 Other long term (current) drug therapy
CPT/HCPCS: 99283

== ENCOUNTER → 2022-12-26 | Outpatient (CLI) | payer OTHER ==
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
== END | disposition home or self-care (01) ==
LOC: RADXRMAIN 08:20
PROVIDERS: ATTEND Physician Assistant
DX: S89.92XA Unspecified injury of left lower leg, initial encounter (principal); M17.12 Unilateral primary osteoarthritis, left knee

== ENCOUNTER → 2023-07-17 | Outpatient (CLI) | payer OTHER ==
--- NOTE | 2023-07-18 13:24 | MM ---
Reason for Exam: Screening (asymptomatic). Baseline mammogram. Patient History: Menarche at age 11. First Full-Term at age 21. Perimenopausal. Risk Values: Brigette 5 year model risk: 0.5%. NCI Lifetime model risk: 9.0%. Prior Study Comparison: Patient's first Mammogram. Tissue Density: There are scattered areas of fibroglandular density. Findings: Analyzed By CAD. Right breast: There is no suspicious group of microcalcifications or new suspicious mass. Left breast: Multiple masses in the left lateral upper outer quadrant likely representing lymph nodes. Ultrasound recommended for confirmation. Overall Assessment: Incomplete: need additional imaging evaluation, BI-RAD 0 Management: Diagnostic Mammogram of the left breast. [facility] will attempt to contact patient to return for supplemental views and ultrasound if indicated. Patient should continue monthly self-breast exams. A clinical breast exam by your physician is recommended on an annual basis. This exam should not preclude additional follow-up of suspicious palpable abnormalities. Note on Brigette scores and lifetime risk: 1. A Brigette score greater than 3% is considered moderate risk. If this is the case, consider specialist referral to assess eligibility for a risk reducing agent. 2. If overall lifetime risk for the development of breast cancer is 20% or higher, the patient may qualify for future screening with alternating mammogram and breast MRI. Electronically signed and approved by: Gerson Marroquin M.D. Radiologis
== END | disposition home or self-care (01) ==
LOC: RADMAMWWP 07:17
PROVIDERS: ATTEND Family Medicine
DX: Z12.31 Encounter for screening mammogram for malignant neoplasm of breast (principal)
CPT/HCPCS: 77067

== ENCOUNTER → 2024-05-26 | Outpatient (CLI) | payer OTHER ==
--- NOTE | 2024-05-26 18:12 | CT ---
EXAMINATION TYPE: CT abdomen pelvis wo con CT DLP: 3355.1 mGycm, Automated exposure control for dose reduction was used. DATE OF EXAM: 05/26/2024 5:53 PM COMPARISON: CT chest and pelvis 05/28/2022, 07/11/2018 CLINICAL INDICATION:Female, 39 years old with history of R10.9 UNSPECIFIED ABDOMINAL PAIN; Right flan k pain for the last few days. TECHNIQUE: Standard CT of the abdomen and pelvis without IV or oral contrast. Lack of IV or oral co ntrast limits evaluation of solid and hollow organ viscera. Coronal and sagittal reformats were perfo rmed. FINDINGS: LOWER CHEST: Unremarkable noncontrast appearance. ABDOMEN LIVER: Enlarged measuring 22.8 cm in CC dimension. GALLBLADDER AND BILE DUCTS: The gallbladder is surgically absent. No biliary ductal dilatation. PANCREAS: Unremarkable noncontrast appearance. SPLEEN: Enlarged measuring 16.9 cm in CC dimension. ADRENAL GLANDS: Unremarkable noncontrast appearance.. KIDNEYS AND URETERS: No evidence of hydronephrosis or renal calculus. No ureteral calculus identifie d. PELVIS BLADDER: Underdistended but grossly unremarkable. REPRODUCTIVE: Stable prominent anteverted uterus. ABDOMEN & PELVIS STOMACH AND BOWEL: Stomach and duodenum are unremarkable. No focal bowel wall thickening or surroundi ng inflammatory changes. The appendix is within normal limits. No evidence of bowel obstruction. PERITONEUM: No evidence of pneumoperitoneum or free fluid. VASCULATURE: No evidence of aortic aneurysm. MUSCULOSKELETAL: No acute osseous abnormalities. Moderate multilevel degenerative disc disease of the lower lumbar spine. LYMPH NODES: Stable enlarged right inguinal lymph node measuring 2.0 cm short axis. No other enlarged lymph nodes. SOFT TISSUE/ABDOMINAL WALL: Mild anasarca. IMPRESSION: 1. No acute abdominal/pelvic process within limitations of a noncontrast exam. 2. Hepatosplenomegaly. 3. Stable enlarged nonspecific right inguinal lymph node. [facility], , 05/26/2024 6:10 PM
== END | disposition home or self-care (01) ==
LOC: RADCTMAIN 17:13
PROVIDERS: ATTEND Family Medicine
DX: R16.2 Hepatomegaly with splenomegaly, not elsewhere classified (principal); R59.0 Localized enlarged lymph nodes
CPT/HCPCS: 74176

== ENCOUNTER → 2024-07-03 | Outpatient (CLI) | payer OTHER ==
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
== END | disposition home or self-care (01) ==
LOC: RADMRIMAIN 20:25
PROVIDERS: ATTEND Orthopaedic Surgery Sports Medicine
DX: S83.8X1D Sprain of other specified parts of right knee, subsequent encounter (principal); M17.11 Unilateral primary osteoarthritis, right knee; X58.XXXD Exposure to other specified factors, subsequent encounter

== ENCOUNTER 2024-07-17 09:30 | Emergency (ER) | payer OTHER ==
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
[2024-07-17] MEDS: PROPARACAINE 0.5% OPHTH DROPS 15 ML BTL LEFT EYE STA (10:36)
[2024-07-17] MEDS: FLUORESCEIN STRIPS 1 MG STRIP LEFT EYE ONE (10:54)
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
[2024-07-17] MEDS: KETOROLAC 15 MG/ML 1 ML VIAL IM STA (13:17)
[2024-07-17 13:46] VITALS: BP 130/68; PULSE 60; RESP 18; TEMP 98
== END 2024-07-17 13:47 | disposition home or self-care (01) ==
LOC: EC 09:30
DX: H93.13 Tinnitus, bilateral (principal); M54.2 Cervicalgia; Z87.891 Personal history of nicotine dependence; V89.2XXA Person injured in unspecified motor-vehicle accident, traffic, initial encounter; Y92.410 Unspecified street and highway as the place of occurrence of the external cause
CPT/HCPCS: 72125; 70450; 99284; 96372; J1885